=== PATIENT | female | born 1960 | race Two or more races ===

== ENCOUNTER 2024-08-13 14:03 | Inpatient (IN) | payer OTHER, SELFPAY ==
[2024-08-13 14:34] VITALS: BP 102/71; PULSE 93; RESP 18; TEMP 36.9; O2SAT 95; BMI 35.9
--- NOTE | 2024-08-13 14:45 | XR_ITS ---
Examination: CT abdomen with intravenous contrast CT pelvis with intravenous contrast 2-D coronal reconstructions 2-D sagittal reconstructions Date and time of exam:August 12, 2024 1754 hrs. Indications: Nausea vomiting abdominal pain umbilical pain beginning 5 days ago. CTDI: vol (mGy) 13.8 DLP: (mGycm) 820 Technique: Multiple axial sections of the abdomen and pelvis have been obtained. 64 slice high-resolution scanner used. 3 mm axial sections have been obtained, post intravenous injection 30 cc [id number] 2-D sagittal, coronal reconstructions obtained. Low dose protocols were performed. One or more of the following dose reduction techniques were used; automated exposure control, adjustment of the mA and/or KV according to patient size, use of iterative reconstruction technique. Findings: No focal liver or splenic lesions No gallstones Common bile duct is enlarged 18 mm No pancreatic mass 17 mm right adrenal nodule indeterminate, recommend elective MRI abdomen follow-up pre and postcontrast No hydronephrosis or renal calculi Multiple fluid distended small bowel loops including incarcerated small bowel in an umbilical hernia, hernia defect measuring 22 mm Normal appendix No diverticulitis Free fluid, mild in the pelvis Retroverted uterus Grade 1 anterolisthesis L4 on L5 with significant degenerative disc disease L5-S1 Impression: High-grade mechanical small bowel obstruction secondary to incarcerated small bowel in an umbilical hernia Recommend surgical consultation
--- NOTE | 2024-08-13 14:45 | EKG_ITS ---
[facility] Test Date: 2024-08-13 Pat Name: RIGO ANN Department: Room: - Gender: Female Sc[employer] Wheeler: : 1960 Requested By: Chelsea Hay Order Number: [id number] Reading MD: Chelsea Hay Measurements Intervals [place] Rate: 72 P: 28 NC: 175 QRS: -10 QRSD: 102 T: 44 QT: 411 QTc: 450 Interpretive Statements SINUS RHYTHM No previous ECG available for comparison /store/S0/[id number]/ecg/[id number].pdf
--- NOTE | 2024-08-13 14:49 | PD.EDABDPN ---
ED Abdominal Pain RME/HPI General Chief Complaint: Abdominal Pain Stated complaint: ABD PAIN, N/V, LOW BP Time seen by provider: 08/13/24 14:21 Arrival date/time: 08/13/24 14:03 RME / HPI RME / HPI narrative: 63-year-old female patient with significant history of hypertension, was brought in by family for evaluation regarding nausea and vomiting. Patient's been having nausea and vomiting since Saturday [place], associated with diffuse abdominal pain, generalized body weakness, dizziness, and hypotension. Also complained of umbilical pain and swelling. This been ongoing since Saturday. Severity moderate. Patient was seen by PCP twice and was given medication for vomiting injection x 2 today and Saturday. Patient denies any fever. Patient told me also that she cannot take anything down due to vomiting. She been complaining of constipation last bowel movement was Saturday. Last passing of gas this morning. Her who ate the same chicken did not have any symptoms. Related Data Home Medications ?Medication ?Instructions ?Recorded ?Confirmed amlodipine 10 mg-benazepril 20 mg 1 cap PO QDAY 05/12/19 capsule clarithromycin 500 mg tablet 500 mg PO BID 05/12/19 levothyroxine 75 mcg tablet 75 mcg PO QDAY 05/12/19 (Synthroid) phenazopyridine 200 mg tablet 200 mg PO TID 05/12/19 (Pyridium) promethazine-DM oral syrup each PO 05/12/19 sulfamethoxazole 800 1 tab PO BID 05/12/19 mg-trimethoprim 160 mg tablet (Bactrim DS) Previous Rx's ?Medication ?Instructions ?Recorded acetaminophen 500 mg tablet 1,000 mg (2 x 500 mg) PO QID PRN 05/13/19 (Tylenol Extra Strength) fever or pain #60 tabs albuterol sulfate 90 mcg/actuation 2 puff inhalation QID PRN 05/13/19 aerosol inhaler shortness of breath or wheezing #18 grams Allergies Allergy/AdvReac Type Severity Reaction Status Date / Time No Known Allergies Allergy Verified 05/12/19 23:23 Review of Systems Review of Systems Narrative Review of Systems: Review of system reviewed and within normal limits except mentioned in HPI ED Exam Narrative Physical exam: VITAL SIGNS: Reviewed. GENERAL APPEARANCE: Alert and interactive, follows commands, no acute distress, HEAD AND FACE: Non-traumatic. ENT: PERRL, pink conjunctivitis, eyelid no trauma, Mucous membrane moist. NECK: Supple, nontender, no nuchal rigidity. CHEST: No tenderness, no crepitus, no paradoxical movement, no retractions. LUNGS: Clear, well ventilated, symmetric, no rales, no wheezing, no ronchi, no stridor, good breath sounds bilaterally. HEART: Regular rate, regular rhythm, no murmur, no gallops. ABDOMEN: Soft, positive bowel sounds, nondistended, no guarding, diffuse abdominal tenderness, no rebound, no masses, RECTAL: Deferred. GENITAL: Deferred. NEUROLOGICAL: Gross motor function intact sensory function intact, Appropriate for age. MUSCULOSKELETAL: low back nontender, full range of motion. EXTREMITIES: Nontender, full range of motion. SKIN: Color pink, dry, no rash, no lacerations, no abrasions, no contusions. LYMPHATICS: Deferred. Course Quality Measures none Orders Category Date Time Status COVID-19 Screening Questionnaire NOW Care 08/13/24 20:[address] Screening NOW Care 08/13/24 14:46 Active Decision to Admit X1 Care 08/13/24 20:18 Active EKG (ED ONLY) *Do not use* NOW Care 08/13/24 14:45 Completed NG / OG Tube to LIS NOW Care 08/13/24 20:00 Active Consult to General Surgery Stat Cons 08/13/24 20:[address] abdomen pelvis w con Stat Exams 08/13/24 14:45 Completed EKG (ED Only) Stat Exams 08/13/24 14:45 Draft Blood Culture (Lab) Stat Lab 08/13/24 20:51 Received CBC Stat Lab 08/13/24 15:11 Completed Comprehensive Metabolic Panel Stat Lab 08/13/24 15:11 Completed Lactate (Lactic Acid) Stat Lab 08/13/24 20:46 Completed Lipase Stat Lab 08/13/24 15:11 Completed Partial Thromboplastin Time Stat Lab 08/13/24 15:11 Completed Prothrombin Time with INR Stat Lab 08/13/24 15:11 Completed UA, C/S IF [Urinalysis, C/S if Indicated] Stat Lab 08/13/24 17:20 Completed Cefoxitin [Mefoxin] 2 gm Med 08/13/24 20:01 Discontinued Sterile Water 10 ml IVP X1 Famotidine Inj [Pepcid Inj] Med 08/13/24 14:45 Discontinued 20 mg IVP X1 ONE Metoclopramide Inj [Reglan Inj] Med 08/13/24 19:53 Discontinued 10 mg IVP X1 ONE Morphine Inj Med 08/13/24 19:53 Discontinued 4 mg IVP X1 ONE Ondansetron Inj [Zofran Inj] Med 08/13/24 14:45 Discontinued 4 mg IV X1 ONE Potassium Chloride [K-Dur] Med 08/13/24 19:12 Discontinued 40 meq PO X1 ONE Sodium Chloride 0.9% 1000 ml [Ns] 1,000 ml Med 08/13/24 14:47 Discontinued IV 999 mls/hr Sodium Chloride 0.9% 1000 ml [Ns] 1,000 ml Med 08/13/24 19:12 Discontinued IV 999 mls/hr Vital Signs Vital signs: Vital Signs Temperature 98.5 F 08/13/24 14:34 Pulse Rate 93 08/13/24 14:34 Respiratory Rate 18 08/13/24 14:34 Blood Pressure 102/71 08/13/24 14:34 Pulse Oximetry (%) 95 08/13/24 14:34 Oxygen Delivery Method Room Air 08/13/24 14:34 Abdominal Pain MDM MDM Narrative MDM Narrative:: 63-year-old female patient with significant history of hypertension, was brought in by family for evaluation regarding nausea and vomiting. Patient's been having nausea and vomiting since Saturday [place], associated with diffuse abdominal pain, generalized body weakness, dizziness, and hypotension. Also complained of umbilical pain and swelling. This been ongoing since Saturday. Severity moderate. Patient was seen by PCP twice and was given medication for vomiting injection x 2 today and Saturday. Patient denies any fever. Patient told me also that she cannot take anything down due to vomiting. She been complaining of constipation last bowel movement was Saturday. Last passing of gas this morning. Her who ate the same chicken did not have any symptoms. CT scan of the abdomen and pelvis showed high-grade small bowel obstruction secondary to incarcerated umbilical hernia. Patient received 2 L of IV fluids, Reglan Zofran, and IV Mefoxin. Hernia was manually reduced by me with no success.Dr Bal tried to reduce also without success. After patient received Valium, morphine and fentanyl IV. Patient continued to have Bile looking vomitus. NG tube was placed. And attached to LIS Case discussed with Dr. Tay, general surgeon on-call, who told me to asked the hospitalist to admit he will see the patient also. Thank you Dr. Tay Spoke with hospitalist who admitted the patient none Dr Bal will call DR Tay Patient data External records reviewed:: None Clinical information provided by:: patient Social determinants that could affect healthcare access:: none Patient has the following chronic illnesses:: None How is presenting disease/condition affected by chronic disease/condition?: no chronic disease Evaluation data The following diagnostics were reviewed and interpreted by me:: lab results, radiology exam(s) and EKG tracing(s) Lab and/or radiology exams considered but not ordered:: None Interpretation Summary: EKG as interpreted by me showed sinus rhythm, ventricular rate of 72 bpm, WI interval 175 MS,no ST segment elevation depression noted. See other results in MDM Medications / Prescriptions Medications or Prescriptions considered but not ordered:: None Medication administrations:: Medication Administration History Acetaminophen (Acetaminophen Supp 650 Mg Supp) 650 mg WI Q6HR PRN PRN Reason: Fever > 100.3 or pain Stop: 09/12/24 20:58 Albuterol/Ipratropium (Albuterol/Ipratropium (Duoneb) Rt Franchesca 3 Ml Nebu) 3 ml INH Q2HR PRN PRN Reason: SHORTNESS OF BREATH OR WHEEZE Stop: 09/12/24 20:58 Dextrose (Dextrose 50%-Water Inj 50 Ml Syringe) 25 ml IV Q15MIN PRN PRN Reason: BG 50-70 responsive npo pt Stop: 09/12/24 21:26 Dextrose (Dextrose 50%-Water Inj 50 Ml Syringe) 50 ml IV Q15MIN PRN PRN Reason: BG <50 OR BG <70 & pt unresponsive Stop: 09/12/24 21:26 Glucagon (Glucagon Inj 1 Mg Vial) 1 mg IM Q15MIN PRN PRN Reason: BG <70, and no IV access Heparin Sodium (Porcine) (Heparin Sod Inj 5000 Unit/Ml Vial) 5,000 unit SC BID RAUL Stop: 08/27/24 20:59 Last Admin: 08/13/24 23:00 Dose: 5,000 unit Documented By: MP Co-signed By: EASTON Hydralazine HCl (Hydralazine Inj 20 Mg/Ml Vial) 5 mg IV Q6H PRN PRN Reason: SBP > 170 Stop: 09/12/24 21:14 Lactated Ringer's (Lactated Ringers) 1,000 mls @ 125 mls/hr IV .Q8H [facility] Stop: 09/12/24 21:07 Last Admin: 08/13/24 22:57 Dose: 125 mls/hr Documented By: NICKY Potassium Chloride (Kcl Ivpb) 10 meq in 100 mls @ 100 mls/hr IV Q1H RAUL Stop: 08/14/24 01:38 Last Admin: 08/13/24 22:58 Dose: 100 mls/hr Documented By: NICKY Levothyroxine Sodium (Levothyroxine Inj 100 Mcg Vial) 37.5 mcg IV ACBR [facility] Stop: 09/13/24 05:59 Morphine Sulfate (Morphine Sulf Inj 10 Mg/Ml Vial) 4 mg IVP Q4H PRN PRN Reason: BREAKTHROUGH PAIN Stop: 08/18/24 20:58 Ondansetron HCl (Ondansetron Inj 2 Mg/Ml Inj 2 Ml) 4 mg IV Q6H PRN; Protocol PRN Reason: NAUSEA OR VOMITING Stop: 09/12/24 20:58 Last Admin: 08/13/24 22:17 Dose: 4 mg Documented By: NICKY Pantoprazole Sodium (Pantoprazole Inj 40 Mg Vial) 40 mg IVP QDAY [facility] Stop: 09/12/24 21:14 Last Admin: 08/13/24 22:57 Dose: 40 mg Documented By: MP Discontinued Medications Diazepam (Diazepam Inj 5 Mg/Ml Vial 2 Ml) 5 mg IVP X1 ONE Stop: 08/13/24 22:41 Last Admin: 08/13/24 22:56 Dose: 5 mg Documented By: MP Famotidine (Famotidine Inj 10 Mg/Ml Vial 2 Ml) 20 mg IVP X1 ONE Stop: 08/13/24 14:46 Last Admin: 08/13/24 15:22 Dose: 20 mg Documented By: PAULINA Fentanyl Citrate (Fentanyl Cit Inj 50 Mcg/Ml Amp 2ml) 75 mcg IVP X1 ONE Stop: 08/13/24 22:41 Last Admin: 08/13/24 22:56 Dose: 75 mcg Documented By: NICKY Sodium Chloride (Ns) 1,000 mls @ 999 mls/hr IV .Q1H1M ONE Stop: 08/13/24 15:47 Last Infusion: 08/13/24 21:54 Dose: Infused Documented By: Admin: 08/13/24 15:15 Dose: 999 mls/hr Documented By: OA Sodium Chloride (Ns) 1,000 mls @ 999 mls/hr IV .Q1H1M ONE Stop: 08/13/24 20:12 Last Infusion: 08/13/24 21:54 Dose: Infused Documented By: Admin: 08/13/24 19:26 Dose: 999 mls/hr Documented By: YONAS Cefoxitin Sodium 2 gm/ Sterile (Water) 10 mls @ 120 mls/hr IVP X1 ONE Stop: 08/13/24 20:05 Last Admin: 08/13/24 23:00 Dose: 120 mls/hr Documented By: NICKY Promethazine HCl 12.5 mg/ (Sodium Chloride) 50.5 mls @ 2.5 mls/min IV X1 ONE Stop: 08/13/24 21:26 Metoclopramide HCl (Metoclopramide Inj 5 Mg/Ml Vial 2 Ml) 10 mg IVP X1 ONE; Protocol Stop: 08/13/24 19:54 Last Admin: 08/13/24 22:56 Dose: 10 mg Documented By: NICKY Morphine Sulfate (Morphine Sulf Inj 10 Mg/Ml Vial) 4 mg IVP X1 ONE Stop: 08/13/24 19:54 Last Admin: 08/13/24 22:12 Dose: 4 mg Documented By: MP Ondansetron HCl (Ondansetron Inj 2 Mg/Ml Inj 2 Ml) 4 mg IV X1 ONE; Protocol Stop: 08/13/24 14:46 Last Admin: 08/13/24 15:22 Dose: 4 mg Documented By: VG Potassium Chloride (Potassium Chloride 20 Meq Tabcr) 40 meq PO X1 ONE Stop: 08/13/24 19:13 Last Admin: 08/13/24 22:57 Dose: 40 meq Documented By: MP IV fluids, Zofran, morphine potassium Reglan and Mefoxin. Patient was also given IV Pepcid Consultations Consultation(s) initiated? (list below): Yes Consultation #1 (Physician, Specialty, Details): I consulted Dr. Tay, general surgeon on-call, thank you Dr. Tay Diagnosis Differential diagnosis abdominal pain: abdominal pain, small bowel obstruction and other (Incarcerated umbilical hernia) Most likely diagnosis given after review of the tests above:: Small bowel obstruction secondary to incarcerated umbilical hernia, SONA Admission Indicated Admission indicated?: indicated Explain why admission is indicated or not indicated:: Patient is to be admitted for further management Admission Request Was there a request for admission?: Yes Admission Attestation Admission request attestation: Discussed case with [] from Hospitalist service regarding admission. Discussed patients ED course, exam findings, labs, and radiology results. The Hospitalist [agrees,declines] to accept the patient for admission. Disposition Plan Disposition Plan: Admit Discharge Plan Plan Patient Disposition: Admit Acute Care w/in Hospital Disposition Comment: stable Problem List Clinical Impression: Small bowel obstruction, Incarcerated umbilical hernia
[2024-08-13] MEDS: SODIUM CHLORIDE 0.9% 1000 ML 1,000 ML 999 ML IV ×2 (15:15→19:26)
[2024-08-13] MEDS: FAMOTIDINE INJ 10 MG/ML VIAL 2 ML 20 MG IVP (15:22)
[2024-08-13] MEDS: ONDANSETRON INJ 2 MG/ML INJ 2 ML 4 MG IV ×2 (15:22→22:17)
[2024-08-13 15:28] LABS: Basophils % (Auto) 0 % (0-2.5); Eosinophils % (Auto) 0 % (0-10); Hemoglobin 14.6 g/dL (12.0-16.0); Immature Granulocytes % (Auto) 0 % (0-0); Immature Granulocytes Auto 0.02 Thou/mm3 (0.00-0.00); Lymphocytes # (Auto) 1.3 Thou/mm3 (1.0-4.8); Lymphocytes % (Auto) 13 % (10-50); Mean Corpuscular Hemoglobin 28.5 pg (25.0-35.0); Mean Corpuscular Volume 84 fL (80-100); Monocytes # (Auto) 1.4 Thou/mm3 (0.0-0.8); Monocytes % (Auto) 14 % (0-12); Neutrophils # (Auto) 7.3 Thou/mm3 (1.8-7.7); Neutrophils % (Auto) 72 % (37-80); Nucleated Red Blood Cell % 0 /100 WBC (0); Platelet Count 349 Thou/mm3 (140-440); RDW Standard Deviation 45.1 fL (36.4-46.3); Red Blood Count 5.13 Miln/mm3 (4.00-5.20); White Blood Count 10.2 Thou/mm3 (3.6-11.0)
[2024-08-13 15:58] LABS: Alanine Aminotransferase 14 U/L (10-49); Albumin, Serum 4.9 gm/dL (3.4-4.8); Albumin/Globulin Ratio 1.4 (1.2-2.2); Alkaline Phosphatase 78 U/L (46-116); Anion Gap 14 (7-16); Aspartate Amino Transferase < 8 U/L (0-34); BUN/Creatinine Ratio 21 Ratio (12-20); Bilirubin,Total 0.8 mg/dL (0.3-1.2); Blood Urea Nitrogen 39 mg/dL (9-23); Calcium 9.8 mg/dL (8.3-10.6); Calcium (Corrected) 9.8 mg/dL (8.5-10.1); Carbon Dioxide 26.2 mMol/L (20.0-31.0); Chloride 94 mMol/L (98-107); Creatinine (Component) 1.9 mg/dL (0.6-1.3); Estimated Creatinine Clearance 28.7 mL/min (>60); Globulin 3.5 gm/dL (2.3-3.5); Glucose 133 mg/dL (74-106); Lipase 80 U/L (12-53); Osmolality,Calculated 279 (275-295); Potassium 3.2 mMol/L (3.4-5.1); Sodium 134 mMol/L (136-145); Total Protein 8.4 gm/dL (5.7-8.2); eGFR 29 See Note
[2024-08-13 16:00] LABS: INR 1.1 (0.9-1.3); Partial Thromboplastin Time 27.3 Seconds (22.0-36.0); Prothrombin Time 11.7 Seconds (9.0-12.2)
[2024-08-13 17:57] LABS: Collection Type, Urine Clean Catch
[2024-08-13 18:41] LABS: Bilirubin,Urine 1+ (Negative); Blood,Urine Negative (Negative); Clarity,Urine Turbid (Clear/Hazy); Color,Urine Yellow (Lt Yel-Yel); Culture Indicated,Urine Not Indicated; Glucose, Urine Negative (Negative); Hyaline Casts,Urine 1 /hpf (0-1); Ketones,Urine 1+ (Negative); Leukocyte Esterase,Urine Negative (Negative); Nitrite,Urine Negative (Negative); PH,Urine 5.5 (5.0-7.0); Protein,Urine 1+ (Neg - Trace); RBC,Urine 1 /hpf (0-3); Specific Gravity,Urine 1.026 (1.001-1.035); Squamous Epithelial Cell,Urine 5 /hpf (0-5); Urobilinogen,Urine Negative mg/dL (0.0-1.0); WBC,Urine 9 /hpf (0-5)
--- NOTE | 2024-08-13 20:58 | PD.RESHP ---
Documentation for date of: 08/13/24 HPI History of Present Illness Chief complaint: Vomiting History of present illness: HPI: Patient is a 63-year-old female with a past medical history significant for essential hypertension, hyperlipidemia and hypothyroidism presented with a chief complaint of vomiting and abdominal pain. Patient states that on Saturday [4 days ago] [place] and had some sweet and sour chicken from the [employer] restaurant. Later that night she developed abdominal pain and vomiting. Initially the vomiting was only food contents progressed to bilious over the course of the 4 days, approximately greater than 10 episodes of vomiting per day. Patient would feel constantly nauseous and vomits shortly after any p.o. intake of liquid or food. Her last bowel movement was 5 days ago and patient is not passing any flatus either. Denies any hematemesis, fecal emesis, coffee ground emesis, diarrhea, melena, fever, chills and shortness of breath. Her abdominal pain was localized around her umbilicus, described as the worst pain in her life, 8/10 in severity, constant, no radiation and aggravated by touching. Of note patient had a previous episode of food poisoning on after eating at the same [employer] restaurant in the past and initially thought this was a recurrence. She treated with initially as food poisoning and presented to her PCP, Dr. Perkins 2 days prior to admission who prescribed her Bactrim and nabumetone. Patient was unable to take any of the medication due to constant vomiting and nausea. She has not been able to tolerate anything p.o. for the past 4 days. ED course: BP 102/71, pulse 93, RR 18, temp 98.5 F, SpO2 95% on room air. Labs significant for NA 134, K3.2, bicarb 26.2, BUN 39, CR 1.9, lipase 80. Urinalysis turbid appearance, 1+ protein, 1+ ketone, 1+ bili. EKG significant for sinus rhythm, rate 72. No acute ST changes. CT abdomen/pelvis significant for multiple fluid distended small bowel loops including incarcerated umbilical hernia, defect 22 mm. Free fluid in the pelvis. 17 mm right adrenal nodule. Retroverted uterus. Grade 1 anterolisthesis L4 on L5 with significant degenerative disc disease In the ED patient received 2 L normal saline IV fluid bolus, ondansetron 4 Mg IV x 2, metoclopramide 10 Mg IV x 1, morphine 4 Mg IV x 1, fentanyl 75 mcg IV x 1, diazepam 5 Mg IV x 1 and KCl 40 mEq p.o. x 1 Patient will be admitted for treatment and management of small bowel obstruction secondary to incarcerated umbilical hernia. General surgeon, Dr Tay consulted and is closely following the case. Appreciate recommendations Review of Systems Review of Systems Narrative Review of Systems: GENERAL: Denies fever/chills or diaphoresis. HEENT: Denies headaches or visual changes. Denies discharge. Neuro: Denies unusual weakness or difficulty speaking. CARDIO: Denies chest pain or palpitations. PULM: Denies SOB, couging or wheezing. GI: As Above URO: Denies buring/itching/pain/urinary changes. 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 MSK/EXT/SKIN: Denies joint/skeletal/muscle pain, issues/changes in upper or lower extremities, itchiness, or superficial pain. PSYCH: Cooperative, pleasant mood & affect. The rest of the review of systems is otherwise negative. Past Medical History Past Medical History Comments [facility] COMMENT: Past medical history: ?Essential hypertension ? Hyperlipidemia ? Hypothyroidism Medication list: ?Pravastatin 40 Mg p.o. at bedtime ? L-thyroxine 75 mcg p.o. daily ? Amlodipine/benazepril 05/10 1 tab p.o. 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 Education Level: Graduated high school Marital Status: with 4 kids Tobacco use: Denies ETHO use: Drinks approximately 2?3 beers per week Illicit drug use: Denies Social History Note: lives with Family History: Father?[place] at 66 Mother?breast cancer Sister?ovarian cancer Exam Vital Signs Temp Pulse Resp BP Pulse Ox O2 Del Method 98.5 F 93 18 102/71 95 Room Air 08/13/24 14:34 08/13/24 14:34 08/13/24 14:34 08/13/24 14:34 08/13/24 14:34 08/13/24 14:34 Narrative Exam Constitutional Alert, oriented x 3 and in mild distress. Elderly, obese female with HEENT Vision grossly intact. Patent nares. Trachea midline Respiratory Chest normal on inspection and clear auscultation bilaterally Cardiovascular S1 and S2 audible, RRR. No murmurs carotid bruit. No gross JVD. Abdominal Soft, obese. 5 x 5 cm mass palpated at umbilicus, skin erythematous, unreducible, painful to palpation. Absent bowel sounds. Genitourinary No bladder tenderness, no flank pain. Normal to palpation Musculoskeletal Extremities tone within normal limits. No LE edema. Neurological CN II - XII grossly intact. Extremity motor and sensation grossly intact. Skin Warm, dry and intact. No apparent lesions. Psychiatric Patient has good affect, is cooperative Results: Labs 08/13/24 15:11 08/13/24 15:11 Labs: Short CBC 08/13/24 Range/Units 15:11 WBC 10.2 (3.6-11.0) Thou/mm3 Hgb 14.6 (12.0-16.0) g/dL Hct 43.0 (36.0-46.0) % Plt Count 349 (140-440) Thou/mm3 BMP 08/13/24 15:11 Sodium 134 L Potassium 3.2 L Chloride 94 L Carbon Dioxide 26.2 BUN 39 H Creatinine 1.9 H Glucose 133 H Calcium 9.8 Liver Function 08/13/24 Range/Units 15:11 Total Bilirubin 0.8 (0.3-1.2) mg/dL AST < 8 (0-34) U/L ALT 14 (10-49) U/L Alkaline Phosphatase 78 (46-116) U/L Albumin 4.9 H (3.4-4.8) gm/dL Urine 08/13/24 Range/Units 17:20 Urine Color Yellow (Lt Yel-Yel) Urine Clarity Turbid A (Clear/Hazy) Urine pH 5.5 (5.0-7.0) Ur Specific [place] 1.026 (1.001-1.035) Urine Protein 1+ A (Neg - Trace) Urine Glucose (UA) Negative (Negative) Quality Measures Quality Measures none Medications Home Medications and Allergies Home Medications ?Medication ?Instructions ?Recorded ?Confirmed ?Type amlodipine 10 mg-benazepril 20 mg 1 cap PO QDAY 05/12/19 History capsule clarithromycin 500 mg tablet 500 mg PO BID 05/12/19 History levothyroxine 75 mcg tablet 75 mcg PO QDAY 05/12/19 History (Synthroid) phenazopyridine 200 mg tablet 200 mg PO TID 05/12/19 History (Pyridium) promethazine-DM oral syrup each PO 05/12/19 History sulfamethoxazole 800 1 tab PO BID 05/12/19 History mg-trimethoprim 160 mg tablet (Bactrim DS) Allergies Allergy/AdvReac Type Severity Reaction Status Date / Time No Known Allergies Allergy Verified 05/12/19 23:23 Visit Medications Discontinued Medications Famotidine (Famotidine Inj 10 Mg/Ml Vial 2 Ml) 20 mg IVP X1 ONE Stop: 08/13/24 14:46 Last Admin: 08/13/24 15:22 Dose: 20 mg Sodium Chloride (Ns) 1,000 mls @ 999 mls/hr IV .Q1H1M ONE Stop: 08/13/24 15:47 Last Admin: 08/13/24 15:15 Dose: 999 mls/hr Sodium Chloride (Ns) 1,000 mls @ 999 mls/hr IV .Q1H1M ONE Stop: 08/13/24 20:12 Last Admin: 08/13/24 19:26 Dose: 999 mls/hr Cefoxitin Sodium 2 gm/ Sterile (Water) 10 mls @ 120 mls/hr IVP X1 ONE Stop: 08/13/24 20:05 Metoclopramide HCl (Metoclopramide Inj 5 Mg/Ml Vial 2 Ml) 10 mg IVP X1 ONE; Protocol Stop: 08/13/24 19:54 Morphine Sulfate (Morphine Sulf Inj 10 Mg/Ml Vial) 4 mg IVP X1 ONE Stop: 08/13/24 19:54 Ondansetron HCl (Ondansetron Inj 2 Mg/Ml Inj 2 Ml) 4 mg IV X1 ONE; Protocol Stop: 08/13/24 14:46 Last Admin: 08/13/24 15:22 Dose: 4 mg Potassium Chloride (Potassium Chloride 20 Meq Tabcr) 40 meq PO X1 ONE Stop: 08/13/24 19:13 Assessment & Plan Plan Patient is a 63-year-old female with a past medical history significant for essential hypertension, hyperlipidemia and hypothyroidism presented with a chief complaint of vomiting and abdominal pain. Patient will be admitted for treatment and management of small bowel obstruction secondary to incarcerated umbilical hernia. 1. Small bowel obstruction secondary to incarcerated umbilical hernia 2. Vomiting 3. Elevated lipase 4. Hypokalemia Patient had greater than 15 episodes of vomiting per day for the past 4 days. Last passed stool 5 days ago and currently not passing any flatus. On exam patient has 5 x 5 cm mass around umbilicus, erythematous, painful to palpation and a reducible. CT abdomen/pelvis significant for multiple fluid distended small bowel loops including incarcerated umbilical hernia, defect 22 mm. Free fluid in the pelvis. 17 mm right adrenal nodule. Retroverted uterus. Grade 1 anterolisthesis L4 on L5 with significant degene Lipase 80, K3.2 In the ED patient received 2 L normal saline IV fluid bolus, ondansetron 4 Mg IV x 2, metoclopramide 10 Mg IV x 1, morphine 4 Mg IV x 1, fentanyl 75 mcg IV x 1, diazepam 5 Mg IV x 1 and KCl 40 mEq p.o. x 1 Plan: ? Keep n.p.o. ? NG tube and low intermittent suction ? Promethazine 12.5 Mg IV x 1 - Ondansetron 4 Mg IV Q6 hourly as needed for nausea/vomiting ? Morphine 4 g IV Q4 hourly as needed for breakthrough pain ? KCl 40 mEq IV x 1 ? Lactated Ringer's IV fluids at 125 cc/hour ? General Surgery, Dr Tay consulted. Appreciate recommendations 5. Acute kidney injury prerenal versus renal On admission CR 1.9. From chart review baseline appears to be 1 Etiology likely prerenal due to volume depletion from vomiting and decreased oral intake for past 4 days. Plan: ? IV hydration ? Renally dose medication ? Avoid nephrotoxic agents 6. Essential hypertension 7. Hyperlipidemia On admission BP 102/71 Home medication pravastatin 40 Mg p.o. at bedtime, amlodipine/benazepril / tab p.o. daily. Plan: ? Home medication on hold for now due to patient being n.p.o. and low blood pressures 8. Hypothyroidism Home medication levothyroxine 75 mcg p.o. daily Patient has not taken any medication for the past 4 days due to constant vomiting. Plan: ? Started on L-thyroxine 37.5 mcg IV AC BR 9. Incidentaloma, right adrenal nodule On CT patient had a 17 mm right adrenal nodule Plan: ? Recommend dexamethasone suppression test as outpatient 10. Grade 1 anterolisthesis L4 on L5 with significant degenerative disc disease Plan: ? Recommend to follow-up with your PCP as outpatient for possible neurosurgery referral Health maintenance: Disposition: Conservative management for SBO with possible surgical intervention Diet: NPO Lines: pIVs GI Prophylaxis: Pantoprazole Thrombo Prophylaxis: Heparin Code status: FULL CODE Plan of care discussed with Attending Dr. Ross Hogan MD PGY 1 Attending Provider Attestation/Addendum I have discussed and was present for the essential components of the history, physical examination, diagnosis, and treatment plan with the resident. I agree with the patient's care as documented by the resident and amended herein by me. Elbert Hawkins, DO. Patient seen and evaluated in the ED. In short, 63-year-old female with significant past medical history of hypertension hypothyroidism, presented for vomiting and abdominal pain for the past several days prior to admission. No bowel movement since Saturday. This is never happened before in the past. Patient subsequently admitted for incarcerated umbilical hernia with associated small bowel obstruction. In the ED, vital signs stable, patient afebrile, CBC unremarkable, BMP significant for a potassium 3.2, BUN 39 and a creatinine of 1.9. UA was positive however the patient is asymptomatic for any urinary symptoms. CT abdomen and pelvis demonstrated SBO secondary to incarcerated umbilical hernia. General surgery, Dr. Tay was consulted in the ED, an NG tube was also ordered. Patient admitted to [facility], general surgery consulted, possible surgical intervention tomorrow, NG tube ordered, will start IVF and hopefully see improvement with her SONA which is likely prerenal, replete potassium, pain control, Accu-Cheks every 6 hours and resume the patient's levothyroxine at an IV dose considering she has not taken it in approximately 5 days. Will continue to monitor closely, likely discharge home in 2 to 3 days pending specialist recommendations, improvement and/or surgical intervention. Although this document has been carefully reviewed, there may still be some phonetic and other typographical errors. These errors are purely grammatical due to imperfections in the software program and should not be construed in any way to compromise the substance of the patient's medical care during this visit.
[2024-08-13 21:02] LABS: Lactate (Lactic Acid) 1.5 mMol/L (0.4-2.0)
[2024-08-13 21:47] VITALS: BP 107/70; PULSE 62; RESP 17; TEMP 37.1; O2SAT 95
[2024-08-13] MEDS: MORPHINE SULF INJ 10 MG/ML VIAL 4 MG IVP (22:12)
[2024-08-13] MEDS: fentaNYL CIT INJ 50 mCg/ML AMP 2ML 75 MCG IVP (22:56)
[2024-08-13] MEDS: METOCLOPRAMIDE INJ 5 MG/ML VIAL 2 ML 10 MG IVP (22:56)
[2024-08-13] MEDS: DIAZEPAM INJ 5 MG/ML VIAL 2 ML IVP (22:56)
[2024-08-13] MEDS: PANTOPRAZOLE INJ 40 MG VIAL IVP (22:57)
[2024-08-13] MEDS: POTASSIUM CHLORIDE 20 mEq TABCR 40 MEQ PO (22:57)
[2024-08-13] MEDS: RINGERS LACTATED 1000 ML 1,000 ML 125 ML IV (22:57)
[2024-08-13] MEDS: POTASSIUM CHL 10 mEq IVPB 10 MEQ/100 ML BAG 100 MEQ IV ×2 (22:58→23:45)
[2024-08-13] MEDS: HEPARIN SOD INJ 5000 UNIT/ML VIAL SC (23:00)
[2024-08-13] MEDS: CEFOXITIN 2 GM in Sterile Water 10 ML IVP (23:00)
[2024-08-13 23:22] VITALS: PULSE 69; RESP 21; RESP 92; O2SAT 97
--- NOTE | 2024-08-13 23:36 | XR_ITS ---
Examination: AP chest single view Technique one AP portable upright chest single view Exam date and time: August 13, 1999 2538 hours Indications: Post orogastric tube placement Findings: Orogastric tube in stomach satisfactory position Subsegmental atelectasis at the lung bases Multiple air distended small bowel loops No free air Impression: Orogastric tube tip in stomach satisfactory position
[2024-08-13 23:44] VITALS: BP 110/75; PULSE 75; RESP 23; TEMP 37.1; O2SAT 91
[2024-08-14] VITALS (21 sets, daily range): BP systolic 110–137; BP diastolic 58–81; PULSE 61–95; RESP 13–90; TEMP 36.6–37.1; O2SAT 93–98; BMI 36.5
[2024-08-14] MEDS: POTASSIUM CHL 10 mEq IVPB 10 MEQ/100 ML BAG 100 MEQ IV ×2 (01:32→02:31)
--- NOTE | 2024-08-14 05:41 | PC.NURSE ---
pt ambulated to bathroom
[2024-08-14 05:54] LABS: Basophils % (Auto) 0 % (0-2.5); Eosinophils # (Auto) 0.1 Thou/mm3 (0.0-0.5); Eosinophils % (Auto) 1 % (0-10); Hematocrit 36.2 % (36.0-46.0); Hemoglobin 12.1 g/dL (12.0-16.0); Immature Granulocytes % (Auto) 0 % (0-0); Immature Granulocytes Auto 0.01 Thou/mm3 (0.00-0.00); Lymphocytes # (Auto) 1.7 Thou/mm3 (1.0-4.8); Lymphocytes % (Auto) 19 % (10-50); Mean Corpuscular HGB Conc 33.4 g/dl (31.0-37.0); Mean Corpuscular Hemoglobin 28.6 pg (25.0-35.0); Mean Corpuscular Volume 86 fL (80-100); Monocytes # (Auto) 1.1 Thou/mm3 (0.0-0.8); Monocytes % (Auto) 13 % (0-12); Neutrophils # (Auto) 5.7 Thou/mm3 (1.8-7.7); Neutrophils % (Auto) 66 % (37-80); Nucleated Red Blood Cell % 0 /100 WBC (0); Platelet Count 286 Thou/mm3 (140-440); RDW Standard Deviation 47.2 fL (36.4-46.3); Red Blood Count 4.23 Miln/mm3 (4.00-5.20); White Blood Count 8.6 Thou/mm3 (3.6-11.0)
[2024-08-14 06:27] LABS: Alanine Aminotransferase 11 U/L (10-49); Albumin, Serum 3.9 gm/dL (3.4-4.8); Albumin/Globulin Ratio 1.4 (1.2-2.2); Alkaline Phosphatase 63 U/L (46-116); Anion Gap 7 (7-16); Aspartate Amino Transferase 11 U/L (0-34); BUN/Creatinine Ratio 34 Ratio (12-20); Bilirubin,Total 0.5 mg/dL (0.3-1.2); Blood Urea Nitrogen 27 mg/dL (9-23); Calcium 8.6 mg/dL (8.3-10.6); Calcium (Corrected) 8.7 mg/dL (8.5-10.1); Carbon Dioxide 27.2 mMol/L (20.0-31.0); Cardiac Risk Estimate 2.8 RATIO (3.7-5.6); Chloride 103 mMol/L (98-107); Cholesterol 122 mg/dL (132-200); Creatinine (Component) 0.8 mg/dL (0.6-1.3); Estimated Creatinine Clearance 68.1 mL/min (>60); Free T4 (Free Thyroxine) 1.13 ng/dL (0.89-1.76); Globulin 2.7 gm/dL (2.3-3.5); Glucose 92 mg/dL (74-106); HDL Cholesterol 44 mg/dL (40-60); LDL Cholesterol,Calculated 56 mg/dL (0-130); Magnesium 2.3 mg/dL (1.6-2.6); Osmolality,Calculated 278 (275-295); Phosphorous 3.1 mg/dL (2.4-5.1); Potassium 4.2 mMol/L (3.4-5.1); Sodium 137 mMol/L (136-145); Thyroid Stimulating Hormone 7.47 uIU/mL (0.55-4.78); Total Protein 6.6 gm/dL (5.7-8.2); Triglycerides 112 mg/dL (30-150); eGFR > 60 See Note
[2024-08-14 06:32] LABS: Glucose Estimated Average 114 mg/dL (80-131); Hemoglobin A1C 5.6 % Hgb (4.8-6.0)
[2024-08-14] MEDS: LEVOTHYROXINE INJ 100 mCg VIAL 37.5 MCG IV (06:43)
[2024-08-14] MEDS: RINGERS LACTATED 1000 ML 1,000 ML 125 ML IV ×2 (06:46→18:35)
--- NOTE | 2024-08-14 06:53 | PC.NURSE ---
дмитрий in room now
--- NOTE | 2024-08-14 06:56 | PD.SURCONS ---
HPI Consult details Consult date: 08/14/24 Reason for consultation narrative: Abdominal pain with nausea and vomiting History of present illness: 63-year-old female with history of hypertension, hypothyroidism and hypercholesterolemia presented to the emergency department with 4-day history of abdominal pain. Her [place] She has had periumbilical pain that has been getting progressively worse. Her pain is associated with nausea and vomiting. She denies having similar symptoms in the past with no recent history of trauma. A CT scan was obtained that revealed incarcerated umbilical hernia causing small bowel obstruction. An NG tube was placed and patient was admitted for further management. Review of Systems Constitutional Constitutional: Denies chills and Denies fever(s) Cardiovascular Cardiovascular: Denies chest pain Respiratory Respiratory: Denies cough Gastrointestinal Gastrointestinal: Reports abdominal pain, Reports nausea and Reports vomiting Genitourinary Genitourinary: Denies difficulty voiding Hematologic/Lymphatic Hematologic/Lymphatic: Denies easy bleeding and Denies easy bruising Past Medical History Surgical History OTHER SURGICAL HX: Social History SMOKING STATUS: Never smoker SUBSTANCE USE: does not use ALCOHOL: Current Meds Home Medications and Allergies Home Medications ?Medication ?Instructions ?Recorded ?Confirmed ?Type amlodipine 10 mg-benazepril 20 mg 1 cap PO QDAY 05/12/19 History capsule clarithromycin 500 mg tablet 500 mg PO BID 05/12/19 History levothyroxine 75 mcg tablet 75 mcg PO QDAY 05/12/19 History (Synthroid) phenazopyridine 200 mg tablet 200 mg PO TID 05/12/19 History (Pyridium) promethazine-DM oral syrup each PO 05/12/19 History sulfamethoxazole 800 1 tab PO BID 05/12/19 History mg-trimethoprim 160 mg tablet (Bactrim DS) Allergies Allergy/AdvReac Type Severity Reaction Status Date / Time No Known Allergies Allergy Verified 05/12/19 23:23 Exam Vital Signs Temp Pulse Resp BP Pulse Ox O2 Del Method O2 Flow Rate 98.7 F 65 20 116/68 94 L Oxy Mask 2 08/13/24 23:44 08/14/24 06:00 08/14/24 06:00 08/14/24 06:00 08/14/24 06:00 08/14/24 06:00 08/14/24 06:00 Constitutional Constitutional: no acute distress Routine Abdominal Exam Abdominal: Present soft, normoactive bowel sounds, tenderness (Periumbilical tenderness with guarding) and hernia (Umbilical hernia that is not reducible at this time no evidence of peritonitis at this time); Absent distended Results Results: Laboratory Laboratory results: results reviewed Results: Imaging CT scan - abdomen: report reviewed and image reviewed CT scan - pelvis: report reviewed and image reviewed Assessment & Plan Problem List (1) Incarcerated umbilical hernia: Status: Acute (2) Small bowel obstruction: Status: Acute Plan Patient will be taken to the operating room for laparoscopic assisted repair of incarcerated umbilical hernia with possible mesh implantation, possible laparotomy with bowel resection. Risks include but not limited to infection, bleeding, injury to bowel, surround neurovascular structures, recurrence of hernia, abdominal sepsis and or abdominal abscess, need for further procedure and or operation discussed with the patient. Benefits alternatives explained to her, all her questions answered, she agreed and consented to proceed with the operation.
--- NOTE | 2024-08-14 07:15 | PC.NURSE ---
In to assess pt. Pt resting quietly at this time with c/o abd pain. Pain medication offered. Pt refused and states states she is tolerating pain. Orders received and initiated. Call light is within reach. Plan of care ongoing.
--- NOTE | 2024-08-14 08:16 | ESPR_ITS ---
Documentation for date of: 08/14/24 Subjective Subjective Interval history: No overnight events. Continued n.p.o. with NG tube suction in preparation for surgery. Pains appear to be managed with current regimen. Denies nausea or vomiting. Denies fever, chills, headaches, chest pain, sob, cough, GI or urinary symptoms. Exam Vital Signs Temp Pulse Resp BP Pulse Ox O2 Del Method O2 Flow Rate 98.7 F 65 20 116/68 94 L Oxy Mask 2 08/13/24 23:44 08/14/24 06:00 08/14/24 06:00 08/14/24 06:00 08/14/24 06:00 08/14/24 06:00 08/14/24 06:00 Narrative Exam GENERAL * Normal-appearing middle-aged female, no apparent distress. Appears comfortable. Pain managed with current regimen. HEENT * NCAT.?MISSAEL. Oral mucosa is moist. Patent Nares NECK * Supple, nontender, no thyromegaly, no meningismus, no JVD, no step offs CHEST * RRR, no m/g/r * CTAB, no w/r/r. Symmetrical chest rise. No intercostal subcostal retraction * Atraumatic, nontender, no crepitus, symmetrical expansion. ABDOMEN * Soft, mildly distended, mild erythema around umbilical hernia which was not visible as patient was laying flat. No guarding/rebound tenderness/masses. * Bowel sounds presents EXTREMITIES * Nontender, no cyanosis, no edema * No edema/cyanosis.? SKIN * Warm and dry, no jaundice/rashes. NEUROMUSCULAR * No lumbar or midline, no CVA, no paraspinal muscle spasm or tenderness. * Moves all 4 extremities well, with full ROM and good CSM. * FERRARA x4, CN II-XII grossly intact. * No focal neurologic deficits. PSYCHIATRY * Normal mood and affect, cooperative, no SI or HI or hallucinations. Objective Labs 08/14/24 05:20 08/14/24 05:20 Labs: Laboratory Results - last 24 hr 08/13/24 08/13/24 08/13/24 15:11 17:20 20:46 WBC 10.2 RBC 5.13 Hgb 14.6 Hct 43.0 MCV 84 MCH 28.5 MCHC 34.0 RDW Std Deviation 45.1 Plt Count 349 Neut % (Auto) 72 Lymph % (Auto) 13 [place] % (Auto) 14 H Eos % (Auto) 0 Baso % (Auto) 0 Neut # (Auto) 7.3 Lymph # (Auto) 1.3 [place] # (Auto) 1.4 H Eos # (Auto) 0.0 Baso # (Auto) 0.0 Immature Gran # (Auto) 0.02 H Absolute Nucleated RBC 0.00 Immature Gran % 0 Nucleated RBC % 0 PT 11.7 INR 1.1 APTT 27.3 Sodium 134 L Potassium 3.2 L Chloride 94 L Carbon Dioxide 26.2 Anion Gap 14 BUN 39 H Creatinine 1.9 H Estim Creat Clear Calc 28.7 L eGFR 29 L BUN/Creatinine Ratio 21 H Glucose [address] Glu mg/dL Hemoglobin A1c Calculated Osmolality 279 Lactic Acid 1.5 Calcium 9.8 Corrected Calcium 9.8 Phosphorus Magnesium Total Bilirubin 0.8 AST < 8 ALT 14 Alkaline Phosphatase 78 Total Protein 8.4 H Albumin 4.9 H Globulin 3.5 Albumin/Globulin Ratio 1.4 Triglycerides Cholesterol LDL Cholesterol, Calc HDL Cholesterol Cholesterol/HDL Ratio Lipase 80 H TSH Free T4 Ur Collection Type Clean Catch Urine Color Yellow Urine Clarity Turbid A Urine pH 5.5 Ur Specific [place] 1.026 Urine Protein 1+ A Urine Glucose (UA) Negative Urine Ketones 1+ A Urine Blood Negative Urine Nitrite Negative Urine Bilirubin 1+ A Urine Urobilinogen (Auto) Negative Ur Leukocyte Esterase Negative Urine RBC 1 Urine WBC 9 H Ur Squamous Epith Cells 5 Urine Bacteria None Hyaline Casts 1 Ur Culture Indicated? Not Indicated 08/14/24 05:20 WBC 8.6 RBC 4.23 Hgb 12.1 D Hct 36.2 MCV 86 MCH 28.6 MCHC 33.4 RDW Std Deviation 47.2 H Plt Count 286 D Neut % (Auto) 66 Lymph % (Auto) 19 [place] % (Auto) 13 H Eos % (Auto) 1 Baso % (Auto) 0 Neut # (Auto) 5.7 Lymph # (Auto) 1.7 [place] # (Auto) 1.1 H Eos # (Auto) 0.1 Baso # (Auto) 0.0 Immature Gran # (Auto) 0.01 H Absolute Nucleated RBC 0.00 Immature Gran % 0 Nucleated RBC % 0 PT INR APTT Sodium 137 Potassium 4.2 D Chloride 103 Carbon Dioxide 27.2 Anion Gap 7 BUN 27 H Creatinine 0.8 D Estim Creat Clear Calc 68.1 eGFR > 60 BUN/Creatinine Ratio [address]ucose [address] Glu mg/dL 114 Hemoglobin A1c 5.6 Calculated Osmolality 278 Lactic Acid Calcium 8.6 Corrected Calcium 8.7 Phosphorus 3.1 Magnesium 2.3 Total Bilirubin 0.5 AST 11 ALT 11 Alkaline Phosphatase 63 Total Protein 6.6 Albumin 3.9 D Globulin 2.7 Albumin/Globulin Ratio 1.4 Triglycerides 112 Cholesterol 122 L LDL Cholesterol, Calc 56 HDL Cholesterol 44 Cholesterol/HDL Ratio 2.8 L Lipase TSH 7.47 H Free T4 1.13 Ur Collection Type Urine Color Urine Clarity Urine pH Ur Specific [place] Urine Protein Urine Glucose (UA) Urine Ketones Urine Blood Urine Nitrite Urine Bilirubin Urine Urobilinogen (Auto) Ur Leukocyte Esterase Urine RBC Urine WBC Ur Squamous Epith Cells Urine Bacteria Hyaline Casts Ur Culture Indicated? Quality Measures Quality Measures none Assessment & Plan Assessment Current Active Medications: Generic Name Dose Route Start Last Admin Trade Name Freq PRN Reason Stop Dose Admin Acetaminophen 650 mg 08/13/24 20:59 Acetaminophen Supp 650 Mg Supp DC 09/12/24 20:58 Q6HR PRN Fever > 100.3 or pain Albuterol/Ipratropium 3 ml 08/13/24 20:59 Albuterol/Ipratropium (Duoneb) Rt Franchesca 3 Ml Nebu INH 09/12/24 20:58 Q2HR PRN SHORTNESS OF BREATH OR WHEEZE Dextrose 25 ml 08/13/24 21:27 Dextrose 50%-Water Inj 50 Ml Syringe IV 09/12/24 21:26 Q15MIN PRN BG 50-70 responsive npo pt Dextrose 50 ml 08/13/24 21:27 Dextrose 50%-Water Inj 50 Ml Syringe IV 09/12/24 21:26 Q15MIN PRN BG <50 OR BG <70 & pt unresponsive Glucagon 1 mg 08/13/24 21:27 Glucagon Inj 1 Mg Vial IM Q15MIN PRN BG <70, and no IV access Heparin Sodium (Porcine) 5,000 unit 08/13/24 21:00 08/13/24 23:00 Heparin Sod Inj 5000 Unit/Ml Vial SC 08/27/24 20:59 5,000 unit BID RAUL Administration Hydralazine HCl 5 mg 08/13/24 21:08 Hydralazine Inj 20 Mg/Ml Vial IV 09/12/24 21:14 Q6H PRN SBP > 170 Lactated Ringer's 1,000 mls @ 125 mls/hr 08/13/24 21:08 08/14/24 06:46 Lactated Ringers IV 09/12/24 21:07 125 mls/hr .Q8H RAUL Administration Levothyroxine Sodium 37.5 mcg 08/14/24 06:00 08/14/24 06:43 Levothyroxine Inj 100 Mcg Vial IV 09/13/24 05:59 37.5 mcg ACBR RAUL Administration Morphine Sulfate 4 mg 08/13/24 20:59 Morphine Sulf Inj 10 Mg/Ml Vial IVP 08/18/24 20:58 Q4H PRN BREAKTHROUGH PAIN Ondansetron HCl 4 mg 08/13/24 20:59 08/13/24 22:17 Ondansetron Inj 2 Mg/Ml Inj 2 Ml IV 09/12/24 20:58 4 mg Q6H PRN Administration NAUSEA OR VOMITING Protocol Pantoprazole Sodium 40 mg 08/13/24 21:15 08/13/24 22:57 Pantoprazole Inj 40 Mg Vial IVP 09/12/24 21:14 40 mg QDAY RAUL Administration Plan In summary: 59-year-old female with PMHx of HTN, HLD, hypothyroidism, admitted for incarcerated umbilical hernia. Currently n.p.o. for OR with general surgery today. Small bowel obstruction secondary to incarcerated umbilical hernia Vomiting Elevated lipase Hypokalemia 2/2 GI loss (resolved) Patient had greater than 15 episodes of vomiting per day for the past [address] shows multiple fluid distended small bowel loops with incarcerated umbilical hernia. ? Lactated ringer at 125 cc/H ? Continue n.p.o., NG tube suction ? Continue NEPHROTOXIN 2 g daily ? Pain control ? Pending OR with general surgery Prerenal SONA 2/2 finding depletion 2/2 vomiting. Resolved with fluids ? Renally dose meds, avoid overdiuresis and NEPHROTOXINS ? Daily CMP HTN HLD Hypothyroidism Tensive on admission. Possibly volume depleted. Home meds include AMLODIPINE/BENZEPRO 05/11 daily. ? Continue home ATORVASTATIN 40 mg daily ? Continue home LEVOTHYROXINE 37.5 mcg AC BR ? Restart ANTIHYPERTENSIVE as indicated Incidental findings CT showed 17 mm right adrenal nodule, grade 1 anterolisthesis L4 on L5 with significant degenerative disc disease. Asymptomatic at this time. ? Recommended outpatient follow-up, referral to specialist as appropriate Health maintenance Diet: NPO GI prophylaxis: PROTONIX DVT prophylaxis: SCD Antibiotics: Not indicated CODE STATUS: Full code Disposition: Surgery Patient case was discussed with attending, Fantasma Rock MD and senior residents Dr. Lock and Dr. Montoya. Elenita Alfred, DO PGYI Senior Resident Attestation: The patient is a 59-year-old female with significant past medical history of hypertension, hyperlipidemia, hypothyroidism who admitted with abdominal pain was found to have incarcerated umbilical hernia. Patient underwent exploratory laparotomy with partial small bowel resection and was found to have strangulated umbilical hernia, loop of mid ileum was strangulated within the hernia sac and has become necrotic. We will continue to monitor her closely, and manage her pain. We will follow general surgeon Dr. Tay's recommendations. I discussed with and supervised the leadership intern physician involved in the care of this patient. I personally saw and examined the patient and discussed the assessment and plan with the entire medicine team, including my attending. I agree with the assessment and plan as documented above. Bernabe Montoya MD PGY2 Internal Medicine Attending Provider Attestation/Addendum Face to face evaluation was performed by me. I have personally seen and examined the patient. I discussed the assessment and plan with the entire medicine team. I reviewed available medical records, imaging studies, laboratory results. I agree with the above subjective data, objective findings, assessment and plan except as corrected by me or noted below Small bowel obstruction secondary to incarcerated umbilical hernia Vomiting due to above Surgery on board, plan for OR today very soon NPO NG suction prn antiemetics and pain regimen
[2024-08-14] MEDS: PANTOPRAZOLE INJ 40 MG VIAL IVP (09:07)
[2024-08-14] MEDS: HEPARIN SOD INJ 5000 UNIT/ML VIAL SC (09:08)
--- NOTE | 2024-08-14 09:41 | PC.CC ---
Patient is a 63 year-old female who presents to the hospital for small bowel obstruction. SUNILWJuliette made [id number] contact with patient. ASW introduced self, role, and reason for visit. Patient appeared alert and oriented to self, location, and situation. At bedside was patient's , Johnny Brito who patient provided consent to remain in the room during assessment. Patient was pleasant and engaged in initial assessment. Patient confirmed information on demographics and reports to living at home with her . 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 Patient is able to ambulate independently and complete her own ADLs. Patient does not use any DME at home. She receives primary care with [facility] and uses [facility] [employer] for prescription medications. Upon discharge patient plans to return back home. volunteer services specialist to follow-up with any discharge needs.
--- NOTE | 2024-08-14 14:45 | PC.NURSE ---
Took report from ED as Oleksandr was on lunch. Ed then called back and stated pt was going straight to surgery. Admission questions delayed until pt comes to floor
--- NOTE | 2024-08-14 16:44 | PD.SUROPNT ---
Date of Procedure 08/14/24 Pre Op Diagnosis Incarcerated umbilical hernia Post Op Diagnosis Strangulated umbilical hernia with necrotic mid ileum Procedure Diagnostic laparoscopy Exploratory laparotomy with partial small bowel resection Findings Strangulated umbilical hernia, loop of mid ileum was strangulated within the hernia sac and has become necrotic Procedure Description Patient brought into the operating room in supine position. After administration of general tracheal anesthesia, patient's abdomen prepped and draped in standard surgical manner. A 5 mm incision was made in left upper quadrant and a Veress needle was inserted. Pneumoperitoneum was obtained up to 15 mmHg. The Veress needle was removed and 5 mm trocar inserted. Laparoscopic camera was inserted. The abdomen was inspected patient was noted to have an incarcerated umbilical hernia with a loop of small bowel incarcerated. An additional 5 mm trocar was placed in left lower quadrant. I attempted to reduce the small bowel from the hernia that was not successful. The part of the small bowel that was incarcerated appeared to be necrotic. At this point I elected to perform the procedure to open. Trocars and pneumoperitoneum was evacuated. An approximately 10 cm incision was made above the umbilicus, to the right and around the umbilicus and dissection was deepened into soft tissue. The hernia sac was circumferentially dissected out surrounding tissue. The defect was extended cephalad to enable reduction of the hernia. The hernia sac was then opened the content was necrotic part of small bowel. The hernia sac was excised. The remainder of the small bowel was eviscerated, proximal to the area of obstruction the small bowel was dilated, distal to the area of obstruction small bowel was decompressed. The area of obstruction was mid ileum. Proximal and distal to the area of necrotic bowel the small bowel was excised. The proximal dilated loops of small bowel was decompressed. A [id number]-[id number], functional end-to-end anastomosis was then created between the 2 ends of the small bowel. The enterotomy site was closed with running 2-0 Vicryl and reinforced with 3-0 silk suture in a Lembert fashion. The mesenteric defect was closed with interrupted [id number] sutures using 3-0 silk. The small bowel was placed inside the abdominal cavity. Abdomen and pelvis copiously and thoroughly washed and irrigated, all the fluids were suctioned and the suction fluid returned clear. Hemostasis was adequate and satisfactory. Anterior abdominal fascia was closed with running 0 PDS as well as interrupted sutures with #1 Vicryl. The wound was washed and incisions closed with emily. Sterile dressing and abdominal binder applied. Patient tolerated procedure well. She was extubated, breathing spontaneously and without difficulty and was transferred to postanesthesia care in stable condition. Instruments, needles and sponge counts were reported to be correct x 2. Anesthesia GETA and local Pathology / specimen Other (Partial small bowel) Estimated Blood Loss 25 Condition Stable Disposition PACU Surgeon Maddy Tay MD Surgical Staff Operation Date: 08/14/24 14:45 Case Staff Anesthesiologist: Alton Garcia RN First Assistant: Phuong Armstrong
--- NOTE | 2024-08-14 16:55 | SUR.PHASEI ---
[id number] Patient arrived to recovery resting comfortably in bed, drowsy and talking with staff, on oxygen 10L via oxy mask, breathing unlabored, vital signs stable, denies pain, dressing intact to abdomen; sutures, emily, gauze, medipore tape, no bleeding noted, NG tube in place at 54 to right nares with dark green fluid in tubing, clamped, lung sounds clear upon auscultation, bilateral radial pulses present when palpated, report received from Lesli BELTRAN/Dr. Garcia and Faheem PERDOMO
--- NOTE | 2024-08-14 17:15 | SUR.PHASEI ---
1715 abdominal binder placed on patient per MD order
[2024-08-14] MEDS: MORPHINE SULF INJ 10 MG/ML VIAL 3 MG IV ×2 (17:21→17:39)
[2024-08-14] MEDS: ACETAMINOPHEN IVPB 1,000 MG/100 ML VIAL 250 MG IV ×2 (17:24→23:46)
--- NOTE | 2024-08-14 18:20 | SUR.PHASEI ---
181 Report given to Susan PERDOMO, patient meets discharge criteria from recovery, awake and talking with staff, on oxygen 4L via oxy mask, breathing unlabored, vital signs stable, dressing intact with abdominal binder, no bleeding noted, per patient her pain is tolerable, denies nausea 182 Patient transported via bed to room 379 without incident, patient awaiting in patient room, patient moisten her mouth with lemon swab
--- NOTE | 2024-08-14 18:40 | PC.NURSE ---
Receive pt. on floor at 1830 on [facility] with oxymask at 4 L. Pt. GCS of 15. Spouse on bedside. Pt has NG marked at 54 in right nare. As of right now complaining pain of 2. Will keep monitor pt. and gracia them comfortable.
[2024-08-14] MEDS: CEFOXITIN 2 GM in SODIUM CHLORIDE 0.9% (P) 50 ML IV (19:41)
[2024-08-14] MEDS: MORPHINE SULF INJ 10 MG/ML VIAL 4 MG IVP (21:25)
[2024-08-14] MEDS: ONDANSETRON INJ 2 MG/ML INJ 2 ML 4 MG IV (21:33)
[2024-08-15] VITALS (8 sets, daily range): BP systolic 117–133; BP diastolic 64–84; PULSE 67–90; RESP 16–19; TEMP 36.2–36.7; O2SAT 91–98; BMI 36.7
[2024-08-15] MEDS: CEFOXITIN 2 GM in SODIUM CHLORIDE 0.9% (P) 50 ML IV ×4 (00:49→18:15)
[2024-08-15] MEDS: RINGERS LACTATED 1000 ML 1,000 ML 125 ML IV ×3 (03:39→22:29)
[2024-08-15] MEDS: ACETAMINOPHEN IVPB 1,000 MG/100 ML VIAL 250 MG IV (05:35)
[2024-08-15] MEDS: LEVOTHYROXINE INJ 100 mCg VIAL 37.5 MCG IV (05:38)
[2024-08-15 05:49] LABS: Basophils % (Auto) 0 % (0-2.5); Eosinophils % (Auto) 0 % (0-10); Hematocrit 36.1 % (36.0-46.0); Hemoglobin 11.9 g/dL (12.0-16.0); Immature Granulocytes % (Auto) 0 % (0-0); Immature Granulocytes Auto 0.02 Thou/mm3 (0.00-0.00); Lymphocytes # (Auto) 0.8 Thou/mm3 (1.0-4.8); Lymphocytes % (Auto) 11 % (10-50); Mean Corpuscular Hemoglobin 28.2 pg (25.0-35.0); Mean Corpuscular Volume 86 fL (80-100); Monocytes # (Auto) 0.8 Thou/mm3 (0.0-0.8); Monocytes % (Auto) 10 % (0-12); Neutrophils # (Auto) 5.7 Thou/mm3 (1.8-7.7); Neutrophils % (Auto) 78 % (37-80); Nucleated Red Blood Cell % 0 /100 WBC (0); Platelet Count 287 Thou/mm3 (140-440); RDW Standard Deviation 45.7 fL (36.4-46.3); Red Blood Count 4.22 Miln/mm3 (4.00-5.20); White Blood Count 7.3 Thou/mm3 (3.6-11.0)
[2024-08-15 06:32] LABS: Alanine Aminotransferase 13 U/L (10-49); Albumin, Serum 3.8 gm/dL (3.4-4.8); Albumin/Globulin Ratio 1.5 (1.2-2.2); Alkaline Phosphatase 60 U/L (46-116); Anion Gap 9 (7-16); Aspartate Amino Transferase 14 U/L (0-34); BUN/Creatinine Ratio 20 Ratio (12-20); Bilirubin,Total 0.5 mg/dL (0.3-1.2); Blood Urea Nitrogen 12 mg/dL (9-23); Calcium 8.9 mg/dL (8.3-10.6); Calcium (Corrected) 9.1 mg/dL (8.5-10.1); Carbon Dioxide 26.1 mMol/L (20.0-31.0); Chloride 103 mMol/L (98-107); Creatinine (Component) 0.6 mg/dL (0.6-1.3); Estimated Creatinine Clearance 90.4 mL/min (>60); Globulin 2.6 gm/dL (2.3-3.5); Glucose 108 mg/dL (74-106); Magnesium 2.1 mg/dL (1.6-2.6); Osmolality,Calculated 276 (275-295); Phosphorous 3.9 mg/dL (2.4-5.1); Potassium 4.9 mMol/L (3.4-5.1); Sodium 138 mMol/L (136-145); Total Protein 6.4 gm/dL (5.7-8.2); eGFR > 60 See Note
--- NOTE | 2024-08-15 08:02 | ESPR_ITS ---
Documentation for date of: 08/15/24 Subjective Subjective Interval history: No acute overnight events. POD 1 ex lap with partial small bowel resection. Continued n.p.o. Pain is tolerated. Passing flatus but no bowel. Denies new symptoms or worsening of symptoms. Denies fever, chills, headaches, chest pain, sob, cough, GI or urinary symptoms. Exam Vital Signs Temp Pulse Resp BP Pulse Ox O2 Del Method O2 Flow Rate 97.6 F 67 16 125/68 96 Oxy Mask 4 08/15/24 04:00 08/15/24 04:00 08/15/24 04:00 08/15/24 04:00 08/15/24 04:00 08/15/24 04:00 08/15/24 04:00 Narrative Exam GENERAL * Normal-appearing middle-aged female, no apparent distress. Appears comfortable. Pain managed with current regimen. HEENT * NCAT.?MISSAEL. Oral mucosa is moist. Patent Nares NECK * Supple, nontender, no thyromegaly, no meningismus, no JVD, no step offs CHEST * RRR, no m/g/r * CTAB, no w/r/r. Symmetrical chest rise. No intercostal subcostal retraction * Atraumatic, nontender, no crepitus, symmetrical expansion. ABDOMEN * Abdominal binder in place, intact and dry. * Bowel sounds presents EXTREMITIES * Nontender, no cyanosis, no edema * No edema/cyanosis.? SKIN * Warm and dry, no jaundice/rashes. NEUROMUSCULAR * No lumbar or midline, no CVA, no paraspinal muscle spasm or tenderness. * Moves all 4 extremities well, with full ROM and good CSM. * FERRARA x4, CN II-XII grossly intact. * No focal neurologic deficits. PSYCHIATRY * Normal mood and affect, cooperative, no SI or HI or hallucinations. Objective Labs 08/17/24 05:00 08/17/24 05:00 Labs: Laboratory Results - last 24 hr 08/15/24 05:19 WBC 7.3 RBC 4.22 Hgb 11.9 L Hct 36.1 MCV 86 MCH 28.2 MCHC 33.0 RDW Std Deviation 45.7 Plt Count 287 Neut % (Auto) 78 Lymph % (Auto) 11 [place] % (Auto) 10 Eos % (Auto) 0 Baso % (Auto) 0 Neut # (Auto) 5.7 Lymph # (Auto) 0.8 L [place] # (Auto) 0.8 Eos # (Auto) 0.0 Baso # (Auto) 0.0 Immature Gran # (Auto) 0.02 H Absolute Nucleated RBC 0.00 Immature Gran % 0 Nucleated RBC % 0 Sodium 138 Potassium 4.9 D Chloride 103 Carbon Dioxide 26.1 Anion Gap 9 BUN 12 Creatinine 0.6 Estim Creat Clear Calc 90.4 eGFR > 60 BUN/Creatinine Ratio 20 Glucose 108 H Calculated Osmolality 276 Calcium 8.9 Corrected Calcium 9.1 Phosphorus 3.9 Magnesium 2.1 Total Bilirubin 0.5 AST 14 ALT 13 Alkaline Phosphatase 60 Total Protein 6.4 Albumin 3.8 Globulin 2.6 Albumin/Globulin Ratio 1.5 Quality Measures Quality Measures none Advance care planning discussed with:: patient Assessment & Plan Assessment Current Active Medications: Generic Name Dose Route Start Last Admin Trade Name Freq PRN Reason Stop Dose Admin Acetaminophen 650 mg 08/13/24 20:59 Acetaminophen Supp 650 Mg Supp HI 09/12/24 20:58 Q6HR PRN Fever > 100.3 or pain Albuterol/Ipratropium 3 ml 08/13/24 20:59 Albuterol/Ipratropium (Duoneb) Rt Franchesca 3 Ml Nebu INH 09/12/24 20:58 Q2HR PRN SHORTNESS OF BREATH OR WHEEZE Atorvastatin Calcium 40 mg 08/14/24 21:00 08/14/24 21:30 Atorvastatin Calcium 20 Mg Tablet PO 09/13/24 20:59 Not Given HS RAUL Dextrose 25 ml 08/13/24 21:27 Dextrose 50%-Water Inj 50 Ml Syringe IV 09/12/24 21:26 Q15MIN PRN BG 50-70 responsive npo pt Dextrose 50 ml 08/13/24 21:27 Dextrose 50%-Water Inj 50 Ml Syringe IV 09/12/24 21:26 Q15MIN PRN BG <50 OR BG <70 & pt unresponsive Glucagon 1 mg 08/13/24 21:27 Glucagon Inj 1 Mg Vial IM Q15MIN PRN BG <70, and no IV access Hydralazine HCl 5 mg 08/13/24 21:08 Hydralazine Inj 20 Mg/Ml Vial IV 09/12/24 21:14 Q6H PRN SBP > 170 Lactated Ringer's 1,000 mls @ 125 mls/hr 08/13/24 21:08 08/15/24 03:39 Lactated Ringers IV 09/12/24 21:07 125 mls/hr .Q8H RAUL Administration Cefoxitin Sodium 2 gm/ Sodium 50 mls @ 100 mls/hr 08/14/24 18:34 08/15/24 06:10 Chloride IV 08/15/24 18:00 100 mls/hr Q6HR RAUL Administration Levothyroxine Sodium 37.5 mcg 08/14/24 06:00 08/15/24 05:38 Levothyroxine Inj 100 Mcg Vial IV 09/13/24 05:59 37.5 mcg ACBR RAUL Administration Morphine Sulfate 4 mg 08/13/24 20:59 08/14/24 21:25 Morphine Sulf Inj 10 Mg/Ml Vial IVP 08/18/24 20:58 4 mg Q4H PRN Administration BREAKTHROUGH PAIN Ondansetron HCl 4 mg 08/13/24 20:59 08/14/24 21:33 Ondansetron Inj 2 Mg/Ml Inj 2 Ml IV 09/12/24 20:58 4 mg Q6H PRN Administration NAUSEA OR VOMITING Protocol Pantoprazole Sodium 40 mg 08/13/24 21:15 08/14/24 09:07 Pantoprazole Inj 40 Mg Vial IVP 09/12/24 21:14 40 mg QDAY RAUL Administration Plan In summary: 59-year-old female with PMHx of HTN, HLD, hypothyroidism, admitted for incarcerated umbilical hernia. S/p ex lap with partial bowel resection. Passing gas. Pain tolerated. Continued n.p.o. No bowel movement yet. Appreciate recommendations from general surgery. SBO Incarcerated medical hernia POD 1 EX-LAP with small bowel resection Patient had greater than 15 episodes of vomiting per day for the past [address] shows multiple fluid distended small bowel loops with incarcerated umbilical hernia. Completed uncomplicated ex lap with small bowel resection. Passing flatus. No bowel movement. Pain tolerated. Continued n.p.o. ? Continue n.p.o., NG tube suction ? Continue CEFOXITIN 2 g daily (08/14 to present) ? Pain control Prerenal SONA (resovled) 2/2 finding depletion 2/2 vomiting. Resolved with fluids ? Renally dose meds, avoid overdiuresis and NEPHROTOXINS ? Daily CMP HTN HLD Hypothyroidism Tensive on admission. Possibly volume depleted. Home meds include AMLODIPINE/BENZEPRO 10/ daily. ? Continue home ATORVASTATIN 40 mg daily ? Continue home LEVOTHYROXINE 37.5 mcg AC BR ? Restart ANTIHYPERTENSIVE as indicated ? MELECIO versus OHA Patient found desatting overnight. Once likely MELECIO versus OHA versus atelectasis. Previously had workup for CPAP 20 years ago but never proceeded with machine. Reports symptoms of snoring, and morning fatigue. ? Oxygen PRN ? CPAP HS ? Recommended outpatient sleep study. Hypokalemia (resolved) Secondary to GI loss. Incidental findings CT showed 17 mm right adrenal nodule, grade 1 anterolisthesis L4 on L5 with significant degenerative disc disease. Asymptomatic at this time. ? Recommended outpatient follow-up, referral to specialist as appropriate Health maintenance Diet: NPO GI prophylaxis: PROTONIX DVT prophylaxis: LOVENOX Antibiotics: Not indicated CODE STATUS: Full code Disposition: Surgery Patient case was discussed with attending, Vasu Arguello MD and senior residents Dr. Lock and Dr. Montoya. Elenita Alfred DO PGYI Senior Resident Attestation: 59-year-old female with significant past medical history of hypertension, hyperlipidemia, hypothyroidism admitted for abdominal pain was found to have incarcerated umbilical hernia is s/p ex lap with partial bowel resection. This morning, she reported doing well, her pain being well-controlled. She denied any nausea, fever or chills, vomiting, has been passing gas. Her vitals were stable, labs were within normal limit. She was started on clear liquid diet by Dr. Tay, and will continue with pain management. She was started on CPAP at night, and we will recommend outpatient sleep study. I discussed with and supervised the tech intern physician involved in the care of this patient. I personally saw and examined the patient and discussed the assessment and plan with the entire medicine team, including my attending. I agree with the assessment and plan as documented above. Bernabe Montoya MD PGY2 Internal Medicine Attending Provider Attestation/Addendum I attest that I was physically present for the evaluation, physical examination, lab and imaging review of the patient with the residents. I discussed the case with the residents and agree with the findings and plans of care as documented above. Ailyn Arguello MD
[2024-08-15] MEDS: PANTOPRAZOLE INJ 40 MG VIAL IVP (10:02)
[2024-08-15] MEDS: ACETAMINOPHEN SUPP 650 MG SUPP PR (10:49)
[2024-08-15] MEDS: ENOXAPARIN SOD INJ 40 MG/0.4 ML SYRINGE SC (11:30)
--- NOTE | 2024-08-15 12:36 | ESPR_ITS ---
Documentation for date of: 08/15/24 Subjective Subjective Narrative: Patient is seen and examined. Pain is controlled. Her NG tube has been clamped, she denies nausea or vomiting Exam Vital Signs Temp Pulse Resp BP Pulse Ox O2 Del Method O2 Flow Rate 97.2 F 84 16 128/67 91 L Room Air 3 08/15/24 12:00 08/15/24 12:00 08/15/24 12:00 08/15/24 12:00 08/15/24 12:00 08/15/24 12:00 08/15/24 09:16 Constitutional Constitutional: no acute distress Routine Abdominal Exam Comments: Abdomen is soft, mildly distended. She has hypoactive bowel sounds. Incision with dressings clean, dry and intact Assessment & Plan Assessment Additional comments: Postop day #1 status post exploratory laparotomy with partial small bowel re section Plan DC NG tube. Continue to use incentive spirometer. May have ice chips. Increase ambulation and use incentive spirometer Procedures Procedures Diagnostic laparoscopy Exploratory laparotomy with partial small bowel resection
[2024-08-15] MEDS: ONDANSETRON INJ 2 MG/ML INJ 2 ML 4 MG IV (22:30)
[2024-08-16] VITALS (7 sets, daily range): BP systolic 131–157; BP diastolic 70–80; PULSE 77–82; RESP 18–24; TEMP 36.4–37.4; O2SAT 93–96
[2024-08-16] MEDS: PROMETHAZINE INJ 12.5 MG in SODIUM CHLORIDE 0.9% 50 ML 2.5 MG IV (03:05)
[2024-08-16] MEDS: ONDANSETRON INJ 2 MG/ML INJ 2 ML 4 MG IV (04:25)
[2024-08-16] MEDS: LEVOTHYROXINE INJ 100 mCg VIAL 37.5 MCG IV (05:40)
[2024-08-16 06:20] LABS: Basophils % (Auto) 0 % (0-2.5); Eosinophils # (Auto) 0.1 Thou/mm3 (0.0-0.5); Eosinophils % (Auto) 2 % (0-10); Hematocrit 34.4 % (36.0-46.0); Hemoglobin 11.2 g/dL (12.0-16.0); Immature Granulocytes % (Auto) 1 % (0-0); Immature Granulocytes Auto 0.05 Thou/mm3 (0.00-0.00); Lymphocytes # (Auto) 1.3 Thou/mm3 (1.0-4.8); Lymphocytes % (Auto) 18 % (10-50); Mean Corpuscular HGB Conc 32.6 g/dl (31.0-37.0); Mean Corpuscular Hemoglobin 28.2 pg (25.0-35.0); Mean Corpuscular Volume 87 fL (80-100); Monocytes # (Auto) 1.1 Thou/mm3 (0.0-0.8); Monocytes % (Auto) 14 % (0-12); Neutrophils # (Auto) 4.9 Thou/mm3 (1.8-7.7); Neutrophils % (Auto) 65 % (37-80); Nucleated Red Blood Cell % 0 /100 WBC (0); Platelet Count 329 Thou/mm3 (140-440); RDW Standard Deviation 47.6 fL (36.4-46.3); Red Blood Count 3.97 Miln/mm3 (4.00-5.20); White Blood Count 7.5 Thou/mm3 (3.6-11.0)
[2024-08-16] MEDS: RINGERS LACTATED 1000 ML 1,000 ML 125 ML IV ×3 (06:43→23:10)
[2024-08-16 06:55] LABS: Alanine Aminotransferase 11 U/L (10-49); Albumin, Serum 3.7 gm/dL (3.4-4.8); Albumin/Globulin Ratio 1.5 (1.2-2.2); Alkaline Phosphatase 57 U/L (46-116); Anion Gap 10 (7-16); Aspartate Amino Transferase < 10 U/L (0-34); BUN/Creatinine Ratio 25 Ratio (12-20); Bilirubin,Total 0.4 mg/dL (0.3-1.2); Blood Urea Nitrogen 10 mg/dL (9-23); Calcium 8.7 mg/dL (8.3-10.6); Calcium (Corrected) 8.9 mg/dL (8.5-10.1); Carbon Dioxide 24.1 mMol/L (20.0-31.0); Chloride 103 mMol/L (98-107); Creatinine (Component) 0.4 mg/dL (0.6-1.3); Estimated Creatinine Clearance 132.5 mL/min (>60); Globulin 2.5 gm/dL (2.3-3.5); Glucose 82 mg/dL (74-106); Magnesium 1.8 mg/dL (1.6-2.6); Osmolality,Calculated 271 (275-295); Phosphorous 2.4 mg/dL (2.4-5.1); Potassium 3.5 mMol/L (3.4-5.1); Sodium 137 mMol/L (136-145); Total Protein 6.2 gm/dL (5.7-8.2); eGFR > 60 See Note
[2024-08-16] MEDS: PANTOPRAZOLE INJ 40 MG VIAL IVP (09:14)
[2024-08-16] MEDS: ENOXAPARIN SOD INJ 40 MG/0.4 ML SYRINGE SC (09:14)
--- NOTE | 2024-08-16 11:25 | EKG_ITS ---
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
--- NOTE | 2024-08-16 11:54 | PD.SURPROG ---
Documentation for date of: 08/16/24 Subjective Subjective Narrative: Patient is seen and examined. She had an episode of emesis while NG tube was being removed. She started passing flatus Exam Vital Signs Temp Pulse Resp BP Pulse Ox O2 Del Method O2 Flow Rate 98.4 F 77 20 143/78 H 96 Nasal Cannula 2 08/16/24 07:49 08/16/24 07:49 08/16/24 07:49 08/16/24 07:49 08/16/24 07:49 08/16/24 07:49 08/16/24 07:49 Constitutional Constitutional: no acute distress Routine Abdominal Exam Comments: Abdomen is soft and less distended. Incision with dressings clean, dry and intact. She has active bowel sounds Assessment & Plan Assessment Additional comments: Postop day #2 status post exploratory laparotomy with partial small bowel resection Plan Start patient on clear liquids. Patient is advised to increase ambulation Procedures Procedures Diagnostic laparoscopy Exploratory laparotomy with partial small bowel resection
--- NOTE | 2024-08-16 14:58 | PC.SS ---
Rounding: Unable to tolerate diet, still experiencing nausea
--- NOTE | 2024-08-16 15:33 | ESPR_ITS ---
Documentation for date of: 08/16/24 Subjective Subjective Interval history: Patient was examined bedside this morning, she was mildly nauseous today. Starting clear liquid diet as per Dr. Mcintosh's recommendation and told her to ambulate more. Exam Vital Signs Temp Pulse Resp BP Pulse Ox O2 Del Method O2 Flow Rate 98.4 F 82 20 157/80 H 96 Nasal Cannula 2 08/16/24 12:00 08/16/24 12:00 08/16/24 12:00 08/16/24 12:00 08/16/24 12:00 08/16/24 12:00 08/16/24 12:00 Narrative Exam GENERAL: Comfortable adult seen resting comfortably in hospital bed, no acute distress,mild naseous VITALS: All vitals were reviewed and the pulse ox is 98% on room air HEENT: Normocephalic, atraumatic. Pupils are equal and reactive. Oral mucosa is moist. NECK: Supple, nontender, no JVD CHEST: Symmetrical, atraumatic and with equal expansion ,Nontender on palpation CARDIOVASCULAR: Heart regular rhythm & rate. S1/S2. no murmur or gallop rub or extra beats. LUNGS: Clear to auscultation bilaterally with symmetrical chest rise. No laboring tachypnea or wheezing. No intercostal subcostal retraction. No rales and no rhonchi. ABDOMEN:Abdomen is soft and less distended. Incision with dressings clean, dry and intact. She has active bowel sounds EXTREMITIES:Moves all 4 extremities,No B/L LE edema. SKIN: Warm and dry, no jaundice or rashes noted. NEURO: Patient is AO x 3, Cranial nerves II through XII grossly intact. There is no focal neurologic deficits noted. PSYCHIATRIC: Patient is in normal mood, cooperative, no SI or HI or hallucinations. Objective Labs 08/17/24 05:00 08/17/24 05:00 Labs: Laboratory Results - last 24 hr 08/16/24 05:34 WBC 7.5 RBC 3.97 L Hgb 11.2 L Hct 34.4 L MCV 87 MCH 28.2 MCHC 32.6 RDW Std Deviation 47.6 H Plt Count 329 D Neut % (Auto) 65 Lymph % (Auto) 18 [place] % (Auto) 14 H Eos % (Auto) 2 Baso % (Auto) 0 Neut # (Auto) 4.9 Lymph # (Auto) 1.3 [place] # (Auto) 1.1 H Eos # (Auto) 0.1 Baso # (Auto) 0.0 Immature Gran # (Auto) 0.05 H Absolute Nucleated RBC 0.00 Immature Gran % 1 H Nucleated RBC % 0 Sodium 137 Potassium 3.5 D Chloride 103 Carbon Dioxide 24.1 Anion Gap 10 BUN 10 Creatinine 0.4 L Estim Creat Clear Calc 132.5 eGFR > 60 BUN/Creatinine Ratio 25 H Glucose 82 Calculated Osmolality 271 L Calcium 8.7 Corrected Calcium 8.9 Phosphorus 2.4 Magnesium 1.8 Total Bilirubin 0.4 AST < 10 ALT 11 Alkaline Phosphatase 57 Total Protein 6.2 Albumin 3.7 Globulin 2.5 Albumin/Globulin Ratio 1.5 Quality Measures Quality Measures none Advance care planning discussed with:: patient Assessment & Plan Assessment Current Active Medications: Generic Name Dose Route Start Last Admin Trade Name Freq PRN Reason Stop Dose Admin Acetaminophen 650 mg 08/15/24 10:27 08/15/24 10:49 Acetaminophen Supp 650 Mg Supp ID 09/12/24 20:58 650 mg Q6HR PRN Administration Fever > 100.3 or pain(1-3) Albuterol/Ipratropium 3 ml 08/13/24 20:59 Albuterol/Ipratropium (Duoneb) Rt Franchesca 3 Ml Nebu INH 09/12/24 20:58 Q2HR PRN SHORTNESS OF BREATH OR WHEEZE Atorvastatin Calcium 40 mg 08/14/24 21:00 08/15/24 22:14 Atorvastatin Calcium 20 Mg Tablet PO 09/13/24 20:59 Not Given HS RAUL Enoxaparin Sodium 40 mg 08/15/24 11:00 08/16/24 09:14 Enoxaparin Sod Inj 40 Mg/0.4 Ml Syringe SC 08/29/24 10:59 40 mg QDAY RAUL Administration Hydralazine HCl 5 mg 08/13/24 21:08 Hydralazine Inj 20 Mg/Ml Vial IV 09/12/24 21:14 Q6H PRN SBP > 170 Lactated Ringer's 1,000 mls @ 125 mls/hr 08/13/24 21:08 08/16/24 15:17 Lactated Ringers IV 09/12/24 21:07 125 mls/hr .Q8H RAUL Administration Levothyroxine Sodium 37.5 mcg 08/14/24 06:00 08/16/24 05:40 Levothyroxine Inj 100 Mcg Vial IV 09/13/24 05:59 37.5 mcg ACBR RAUL Administration Morphine Sulfate 4 mg 08/15/24 14:28 Morphine Sulf Inj 10 Mg/Ml Vial IVP 08/18/24 20:58 Q4H PRN BREAKTHROUGH PAIN Ondansetron HCl 4 mg 08/13/24 20:59 08/16/24 04:25 Ondansetron Inj 2 Mg/Ml Inj 2 Ml IV 09/12/24 20:58 4 mg Q6H PRN Administration NAUSEA OR VOMITING Protocol Pantoprazole Sodium 40 mg 08/13/24 21:15 08/16/24 09:14 Pantoprazole Inj 40 Mg Vial IVP 09/12/24 21:14 40 mg QDAY RAUL Administration Plan In summary: 59-year-old female with PMHx of HTN, HLD, hypothyroidism, admitted for incarcerated umbilical hernia. S/p ex lap with partial bowel resection. Passing gas. Pain tolerated. No bowel movement yet. Appreciate recommendations from general surgery. Incarcerated medical hernia POD 2 EX-LAP with small bowel resection SBO Patient had greater than 15 episodes of vomiting per day for the past [address] shows multiple fluid distended small bowel loops with incarcerated umbilical hernia. Completed uncomplicated ex lap with small bowel resection. Passing flatus. No bowel movement. Pain tolerated. Continued n.p.o. ? NG tube discontinued ? Continue CEFOXITIN 2 g daily (discontinued ) ? Clear liquis diet _ Advised her to ambulate more Prerenal SONA (resovled) 2/2 finding depletion 2/2 vomiting. Resolved with fluids ? Renally dose meds, avoid overdiuresis and NEPHROTOXINS ? Daily CMP HTN HLD Hypothyroidism Tensive on admission. Possibly volume depleted. Home meds include AMLODIPINE/BENZEPRO 10/21 daily. ? Continue home ATORVASTATIN 40 mg daily ? Continue home LEVOTHYROXINE 37.5 mcg AC BR ? Restart ANTIHYPERTENSIVE as indicated ? MELECIO versus OHA Patient found desatting overnight. Once likely MELECIO versus OHA versus atelectasis. Previously had workup for CPAP 20 years ago but never proceeded with machine. Reports symptoms of snoring, and morning fatigue. ? Oxygen PRN ? CPAP HS ? Recommended outpatient sleep study. Hypokalemia (resolved) Secondary to GI loss. Incidental findings CT showed 17 mm right adrenal nodule, grade 1 anterolisthesis L4 on L5 with significant degenerative disc disease. Asymptomatic at this time. ? Recommended outpatient follow-up, referral to specialist as appropriate Health maintenance Diet: CLD GI prophylaxis: PROTONIX DVT prophylaxis: LOVENOX Antibiotics: Not indicated CODE STATUS: Full code Disposition: Surgery Patient case was discussed with attending Esau Mitchell MD , PGY-3 Attending Provider Attestation/Addendum I reviewed labs, imaging, EKG, home medications and prior available records. Face to face evaluation was performed by me. I have personally examined the patient and discussed assessment and plan with the IM team. I reviewed the resident note and agree with the plan with exceptions as below. Small bowel obstruction status post exploratory laparotomy and partial removal of small bowel Nausea and vomiting Periumbilical abdominal pain Advance diet as tolerated Management of pain as needed Discussed with general surgery: Recommended early ambulation
[2024-08-16] MEDS: METOCLOPRAMIDE INJ 5 MG/ML VIAL 2 ML 10 MG IVP ×2 (19:36→23:47)
[2024-08-16] MEDS: bisacodyL 10 MG SUPP PR (19:40)
[2024-08-16] MEDS: ATORVASTATIN CALCIUM 20 MG TABLET 40 MG PO (21:32)
[2024-08-17] VITALS: BP 133/74; PULSE 81; RESP 20; TEMP 36.4; O2SAT 95
[2024-08-17 04:00] VITALS: BP 129/72; PULSE 72; RESP 20; TEMP 36.4; O2SAT 95
[2024-08-17] MEDS: LEVOTHYROXINE INJ 100 mCg VIAL 37.5 MCG IV (05:33)
[2024-08-17] MEDS: METOCLOPRAMIDE INJ 5 MG/ML VIAL 2 ML 10 MG IVP ×2 (05:35→11:47)
[2024-08-17 06:41] LABS: Basophils % (Auto) 0 % (0-2.5); Eosinophils # (Auto) 0.2 Thou/mm3 (0.0-0.5); Eosinophils % (Auto) 2 % (0-10); Hematocrit 32.4 % (36.0-46.0); Hemoglobin 10.8 g/dL (12.0-16.0); Immature Granulocytes % (Auto) 1 % (0-0); Immature Granulocytes Auto 0.05 Thou/mm3 (0.00-0.00); Lymphocytes # (Auto) 1.5 Thou/mm3 (1.0-4.8); Lymphocytes % (Auto) 20 % (10-50); Mean Corpuscular HGB Conc 33.3 g/dl (31.0-37.0); Mean Corpuscular Hemoglobin 28.4 pg (25.0-35.0); Mean Corpuscular Volume 85 fL (80-100); Monocytes % (Auto) 13 % (0-12); Neutrophils # (Auto) 4.7 Thou/mm3 (1.8-7.7); Neutrophils % (Auto) 63 % (37-80); Nucleated Red Blood Cell % 0 /100 WBC (0); Platelet Count 315 Thou/mm3 (140-440); RDW Standard Deviation 45.8 fL (36.4-46.3); White Blood Count 7.4 Thou/mm3 (3.6-11.0)
[2024-08-17 07:13] LABS: Alanine Aminotransferase 13 U/L (10-49); Albumin, Serum 3.3 gm/dL (3.4-4.8); Albumin/Globulin Ratio 1.3 (1.2-2.2); Alkaline Phosphatase 54 U/L (46-116); Anion Gap 11 (7-16); Aspartate Amino Transferase 13 U/L (0-34); BUN/Creatinine Ratio 23 Ratio (12-20); Bilirubin,Total 0.4 mg/dL (0.3-1.2); Blood Urea Nitrogen 9 mg/dL (9-23); Calcium 8.5 mg/dL (8.3-10.6); Calcium (Corrected) 9.1 mg/dL (8.5-10.1); Carbon Dioxide 23.9 mMol/L (20.0-31.0); Chloride 102 mMol/L (98-107); Creatinine (Component) 0.4 mg/dL (0.6-1.3); Estimated Creatinine Clearance 132.5 mL/min (>60); Globulin 2.5 gm/dL (2.3-3.5); Glucose 77 mg/dL (74-106); Magnesium 1.7 mg/dL (1.6-2.6); Osmolality,Calculated 271 (275-295); Phosphorous 2.8 mg/dL (2.4-5.1); Potassium 3.1 mMol/L (3.4-5.1); Sodium 137 mMol/L (136-145); Total Protein 5.8 gm/dL (5.7-8.2); eGFR > 60 See Note
[2024-08-17 08:00] VITALS: BP 111/63; PULSE 71; RESP 18; TEMP 36.3; O2SAT 95
[2024-08-17] MEDS: RINGERS LACTATED 1000 ML 1,000 ML 125 ML IV (08:05)
[2024-08-17 08:19] VITALS: PULSE 87; RESP 18; O2SAT 97
--- NOTE | 2024-08-17 08:23 | PD.RESPRO ---
Documentation for date of: 08/17/24 Subjective Subjective Interval history: No acute overnight events. Patient doing well. Tolerating clear liquid, passing stool. Denies new symptoms or worsening of symptoms. Denies fever, chills, headaches, chest pain, sob, cough, GI or urinary symptoms. Exam Vital Signs Temp Pulse Resp BP Pulse Ox O2 Del Method O2 Flow Rate 97.6 F 87 18 129/72 97 Nasal Cannula 2 08/17/24 04:00 08/17/24 08:19 08/17/24 08:19 08/17/24 04:00 08/17/24 08:19 08/17/24 04:00 08/17/24 08:19 Narrative Exam GENERAL Normal-appearing middle-aged female, no apparent distress. Appears comfortable. Pain managed with current regimen. HEENT NCAT.?MISSAEL. Oral mucosa is moist. Patent Nares NECK Supple, nontender, no thyromegaly, no meningismus, no JVD, no step offs CHEST RRR, no m/g/r CTAB, no w/r/r. Symmetrical chest rise. No intercostal subcostal retraction Atraumatic, nontender, no crepitus, symmetrical expansion. ABDOMEN Abdominal binder in place, intact and dry. Bowel sounds presents EXTREMITIES Nontender, no cyanosis, no edema No edema/cyanosis.? SKIN Warm and dry, no jaundice/rashes. NEUROMUSCULAR No lumbar or midline, no CVA, no paraspinal muscle spasm or tenderness. Moves all 4 extremities well, with full ROM and good CSM. FERRARA x4, CN II-XII grossly intact. No focal neurologic deficits. PSYCHIATRY Normal mood and affect, cooperative, no SI or HI or hallucinations. Objective Labs 08/17/24 05:00 08/17/24 05:00 Labs: Laboratory Results - last 24 hr 08/17/24 05:00 WBC 7.4 RBC 3.80 L Hgb 10.8 L Hct 32.4 L MCV 85 MCH 28.4 MCHC 33.3 RDW Std Deviation 45.8 Plt Count 315 Neut % (Auto) 63 Lymph % (Auto) 20 [place] % (Auto) 13 H Eos % (Auto) 2 Baso % (Auto) 0 Neut # (Auto) 4.7 Lymph # (Auto) 1.5 [place] # (Auto) 1.0 H Eos # (Auto) 0.2 Baso # (Auto) 0.0 Immature Gran # (Auto) 0.05 H Absolute Nucleated RBC 0.00 Immature Gran % 1 H Nucleated RBC % 0 Sodium 137 Potassium 3.1 L Chloride 102 Carbon Dioxide 23.9 Anion Gap 11 BUN 9 Creatinine 0.4 L Estim Creat Clear Calc 132.5 eGFR > 60 BUN/Creatinine Ratio 23 H Glucose 77 Calculated Osmolality 271 L Calcium 8.5 Corrected Calcium 9.1 Phosphorus 2.8 Magnesium 1.7 Total Bilirubin 0.4 AST 13 ALT 13 Alkaline Phosphatase 54 Total Protein 5.8 Albumin 3.3 L Globulin 2.5 Albumin/Globulin Ratio 1.3 Quality Measures Quality Measures none Advance care planning discussed with:: patient Assessment & Plan Assessment Current Active Medications: Generic Name Dose Route Start Last Admin Trade Name Freq PRN Reason Stop Dose Admin Acetaminophen 650 mg 08/15/24 10:27 08/15/24 10:49 Acetaminophen Supp 650 Mg Supp AK 09/12/24 20:58 650 mg Q6HR PRN Administration Fever > 100.3 or pain(1-3) Albuterol/Ipratropium 3 ml 08/13/24 20:59 Albuterol/Ipratropium (Duoneb) Rt [place] 3 Ml Nebu INH 09/12/24 20:58 Q2HR PRN SHORTNESS OF BREATH OR WHEEZE Atorvastatin Calcium 40 mg 08/14/24 21:00 08/16/24 21:32 Atorvastatin Calcium 20 Mg Tablet PO 09/13/24 20:59 40 mg HS RAUL Administration Enoxaparin Sodium 40 mg 08/15/24 11:00 08/16/24 09:14 Enoxaparin Sod Inj 40 Mg/0.4 Ml Syringe SC 08/29/24 10:59 40 mg QDAY RAUL Administration Hydralazine HCl 5 mg 08/13/24 21:08 Hydralazine Inj 20 Mg/Ml Vial IV 09/12/24 21:14 Q6H PRN SBP > 170 Lactated Ringer's 1,000 mls @ 125 mls/hr 08/13/24 21:08 08/16/24 23:10 Lactated Ringers IV 09/12/24 21:07 125 mls/hr .Q8H RAUL Administration Levothyroxine Sodium 37.5 mcg 08/14/24 06:00 08/17/24 05:33 Levothyroxine Inj 100 Mcg Vial IV 09/13/24 05:59 37.5 mcg ACBR RAUL Administration Metoclopramide HCl 10 mg 08/16/24 18:30 08/17/24 05:35 Metoclopramide Inj 5 Mg/Ml Vial 2 Ml IVP 09/15/24 18:29 10 mg Q6HR RAUL Administration Protocol Morphine Sulfate 4 mg 08/15/24 14:28 Morphine Sulf Inj 10 Mg/Ml Vial IVP 08/18/24 20:58 Q4H PRN BREAKTHROUGH PAIN Ondansetron HCl 4 mg 08/13/24 20:59 08/16/24 04:25 Ondansetron Inj 2 Mg/Ml Inj 2 Ml IV 09/12/24 20:58 4 mg Q6H PRN Administration NAUSEA OR VOMITING Protocol Pantoprazole Sodium 40 mg 08/13/24 21:15 08/16/24 09:14 Pantoprazole Inj 40 Mg Vial IVP 09/12/24 21:14 40 mg QDAY RAUL Administration Plan In summary: 59-year-old female with PMHx of HTN, HLD, hypothyroidism, admitted for incarcerated umbilical hernia. S/p ex lap with partial bowel resection. Bowel function returned. Tolerating clear liquid diet. We advance to regular diet per surgery recommendations. If she tolerates she can probably discharge. Appreciate recommendations from general surgery. Incarcerated medical hernia POD 3 EX-LAP with small bowel resection SBO Patient had greater than 15 episodes of vomiting per day for the past [address] shows multiple fluid distended small bowel loops with incarcerated umbilical hernia. Completed uncomplicated ex lap with small bowel resection. Bowel function returned. Tolerating clear liquids. Ambulating independently. General surgery agreed to discharge if tolerating regular diet. ? Continue CEFOXITIN 2 g daily (discontinued ) Continue regular diet Asymptomatic bacteriuria Urine grew E. coli, patient asymptomatic. ? Continue monitoring Prerenal SONA (resovled) 2/2 finding depletion 2/2 vomiting. Resolved with fluids ? Renally dose meds, avoid overdiuresis and NEPHROTOXINS ? Daily CMP HTN HLD Hypothyroidism Tensive on admission. Possibly volume depleted. Home meds include AMLODIPINE/BENZEPRO 10 daily. ? Continue home ATORVASTATIN 40 mg daily ? Continue home LEVOTHYROXINE 37.5 mcg AC BR ? Restart ANTIHYPERTENSIVE as indicated ? MELECIO versus OHA Patient found desatting overnight. Once likely MELECIO versus OHA versus atelectasis. Previously had workup for CPAP 20 years ago but never proceeded with machine. Reports symptoms of snoring, and morning fatigue. ? Oxygen PRN ? CPAP HS ? Recommended outpatient sleep study. Hypokalemia (resolved) Secondary to GI loss. Incidental findings CT showed 17 mm right adrenal nodule, grade 1 anterolisthesis L4 on L5 with significant degenerative disc disease. Asymptomatic at this time. ? Recommended outpatient follow-up, referral to specialist as appropriate Health maintenance Diet: CLD GI prophylaxis: PROTONIX DVT prophylaxis: LOVENOX Antibiotics: Not indicated CODE STATUS: Full code Disposition: Surgery Patient case was discussed with attending, Stef Ahmadi MD and senior resident Dr. Lock. Elenita Alfred DO PGYI
[2024-08-17] MEDS: POTASSIUM CHLORIDE 20 mEq TABCR 40 MEQ PO (10:40)
[2024-08-17] MEDS: POTASSIUM CHL 10 mEq IVPB 10 MEQ/100 ML BAG 100 MEQ IV ×4 (10:42→13:54)
[2024-08-17] MEDS: PANTOPRAZOLE INJ 40 MG VIAL IVP (10:42)
[2024-08-17] MEDS: ENOXAPARIN SOD INJ 40 MG/0.4 ML SYRINGE SC (10:42)
[2024-08-17 12:00] VITALS: BP 128/78; PULSE 69; RESP 17; TEMP 36.2; O2SAT 97
--- NOTE | 2024-08-17 15:10 | ESPR_ITS ---
Documentation for date of: 08/17/24 Subjective Subjective Narrative: Patient is seen and examined. Pain is improving. She is tolerating liquids without nausea or vomiting. She has had bowel movement yesterday after giving her laxatives Exam Vital Signs Temp Pulse Resp BP Pulse Ox O2 Del Method O2 Flow Rate 97.1 F 69 17 128/78 97 Room Air 2 08/17/24 12:00 08/17/24 12:00 08/17/24 12:08/17/24 12:08/17/24 12:08/17/24 12:08/17/24 08:19 Constitutional Constitutional: no acute distress Routine Abdominal Exam Abdominal: Present soft, normoactive bowel sounds and tenderness (Harleen- incisional tenderness. Incision is clean, dry and intact); Absent distended Assessment & Plan Assessment Additional comments: Postop day #3 status post exploratory laparotomy with partial small bowel resection Plan Advance to regular diet. If she is tolerating regular diet and continues to have bowel movement, may discharge home Procedures Procedures Diagnostic laparoscopy Exploratory laparotomy with partial small bowel resection
--- NOTE | 2024-08-17 15:33 | ESDS_ITS ---
Planned Discharge Date 08/17/24 DS: Providers Provider Date of admission: 08/13/24 20:59 Primary care physician: Luciano Perkins MD Admitting Provider: Jose Hawkins DO Attending Provider on Admission: Stef Ahmadi MD Consults: 08/13/24 20:02 Consult to General Surgery Stat Comment: Small bowel obstruction secondary to incarcerated Consulting Provider: Maddy Tay Attending Provider on DC: Stef Ahmadi MD Discharging Provider: Stef Ahmadi MD DS: Diagnosis Problem List Completed Was Problem List Reviewed/Reconciled?: Yes Hospital Course Hospital Course Hospital course: This is a 59-year-old female with PMHx of HTN, HLD, hypothyroidism, admitted for incarcerated umbilical hernia. CT showed High-grade mechanical small bowel obstruction secondary to incarcerated small bowel in an umbilical hernia. S/p uncomplicated EX-LAP with small bowel resection. Bowel function returned. Patient is stable. Ambulating independently. Tolerating regular diet, passing stool, without nausea or vomiting. She will follow-up with general surgery within 1-2 weeks of discharge. PATIENT INSTRUCTIONS: Follow-up with PCP within 1-2 weeks of discharge. Follow-up with general surgery, Dr. Tay within 1-2 weeks of discharge. Advance diet as tolerated. Recommended referral for sleep study to rule out sleep apnea. Return to Emergency Room if symptoms persist, worsen, or new symptoms develop. Continue taking PROTONIX 40 mg daily. Continue taking MIRALAX stool softener as needed. Continue taking TYLENOL as needed for pain. Continue taking all home medications as prescribed by your doctor. ADMISSION DIAGNOSES: Incarcerated medical hernia POD 3 EX-LAP with small bowel resection SBO Asymptomatic bacteriuria Prerenal SONA (resovled) HTN HLD Hypothyroidism ? MELECIO versus OHA Hypokalemia (resolved) Incidental findings CT showed 17 mm right adrenal nodule, grade 1 anterolisthesis L4 on L5 with significant degenerative disc disease. Asymptomatic at this time. ? Recommended outpatient follow-up, referral to specialist as appropriate Patient case was discussed with attending, Stef Ahmadi MD and senior resident Dr. Lock. Elenita Alfred DO PGYI Time Spent with Patient Time attestation: Total time spent providing and/or coordinating discharge services: Greater than 35 minutes. Exam Vital Signs Temp Pulse Resp BP Pulse Ox O2 Del Method O2 Flow Rate 97.1 F 69 17 128/78 97 Room Air 2 08/17/24 12:00 08/17/24 12:00 08/17/24 12:00 08/17/24 12:00 08/17/24 12:08/17/24 12:00 08/17/24 08:19 Narrative Exam GENERAL: Comfortable adult seen resting comfortably in hospital bed, no acute distress,mild naseous VITALS: All vitals were reviewed and the pulse ox is 98% on room air HEENT: Normocephalic, atraumatic. Pupils are equal and reactive. Oral mucosa is moist. NECK: Supple, nontender, no JVD CHEST: Symmetrical, atraumatic and with equal expansion ,Nontender on palpation CARDIOVASCULAR: Heart regular rhythm & rate. S1/S2. no murmur or gallop rub or extra beats. LUNGS: Clear to auscultation bilaterally with symmetrical chest rise. No laboring tachypnea or wheezing. No intercostal subcostal retraction. No rales and no rhonchi. ABDOMEN:Abdomen is soft and less distended. Incision with dressings clean, dry and intact. She has active bowel sounds EXTREMITIES:Moves all 4 extremities,No B/L LE edema. SKIN: Warm and dry, no jaundice or rashes noted. NEURO: Patient is AO x 3, Cranial nerves II through XII grossly intact. There is no focal neurologic deficits noted. PSYCHIATRIC: Patient is in normal mood, cooperative, no SI or HI or hallucinations. Discharge Plan Plan Patient Disposition: HOME (Self Care) Disposition Comment: stable Care Plan Goals: Follow-up with PCP within 1-2 weeks of discharge. Follow-up with general surgery, Dr. Tay within 1-2 weeks of discharge. Advance diet as tolerated. Recommended referral for sleep study to rule out sleep apnea. Return to Emergency Room if symptoms persist, worsen, or new symptoms develop. Continue taking PROTONIX 40 mg daily. Continue taking MIRALAX stool softener as needed. Continue taking TYLENOL as needed for pain. Continue taking all home medications as prescribed by your doctor. Prescriptions/Referrals Prescriptions/Med Rec: New pantoprazole 40 mg Tablet,Delayed Release (Dr/Ec) 40 mg PO QDAY Qty: 30 0RF polyethylene glycol 3350 [Miralax] 17 gram/dose powder 4 g PO QDAY PRN (Reason: constipation) Qty: 119 0RF Continued levothyroxine [Synthroid] 75 mcg tablet 75 mcg PO QDAY amlodipine-benazepril 10-20 mg capsule 1 cap PO QDAY gabapentin 300 mg capsule 300 mg PO TID Patient Comments: TAKE 1 CAPSULE BY MOUTH 3 TIMES A DAY Discontinued sulfamethoxazole-trimethoprim [Bactrim DS] 800-160 mg tablet 1 tab PO BID promethazine-DM syrup 6.25 - 15 each PO TID Referrals: Maddy Tay MD [Physician] - Luciano Perkins MD [Primary Care Provider] - Patient/Caregiver Discharge Instructions Education Materials: Types of Colon Resections, Having Open Colon Surgery, ED Hernia (Adult) Print Language: French Stand Alone Forms: [employer] Award Info., Patient Portal Info Letter Discharge Order Discharge Orders: Discharge (Routine); Ordered 08/17/24 Ordered By: Esau Lock Quality Discharge Quality Measures VTE prophylaxis Attestestation MD Attestation I reviewed labs, imaging, EKG, home medications and prior available records. Face to face evaluation was performed by me. I have personally examined the patient and discussed assessment and plan with the IM team. I reviewed the resident note and agree with the plan with exceptions as below. Small bowel obstruction status post exploratory laparotomy and partial removal of small bowel Nausea and vomiting Periumbilical abdominal pain Advance diet as tolerated: Tolerated her advanced diet, had a bowel movement and is passing gas Management of pain as needed Discussed with general surgery: Recommended early ambulation. Patient is ambulating well. Okay to discharge from surgery standpoint Time spent is 35 minutes. More than 50% of the time was spent on patient education and coordination of care.
[2024-08-17 16:00] VITALS: BP 123/72; PULSE 80; RESP 18; TEMP 36.3; O2SAT 98
[2024-08-17] MEDS: bisacodyL 5 MG TABEC 10 MG PO (17:53)
== END 2024-08-17 19:15 | disposition home or self-care (01) | DRG 329 ==
LOC: SERX 20:21 → SERHOLD 21:26 → S3SX 08-14 18:26
PROVIDERS: Nurse Practitioner Family; Surgery; Admitting Provider Student in an Organized Health Care Education/Training Program; Emergency Provider Emergency Medicine; PCP Family Medicine; Visit Provider Student in an Organized Health Care Education/Training Program
PROC: 0WQF4ZZ Repair Abdominal Wall, Percutaneous Endoscopic Approach (ICD-10-PCS; principal; 2024-08-14 14:30)
DX: K42.0 Umbilical hernia with obstruction, without gangrene (principal); K55.029 Acute infarction of small intestine, extent unspecified; N17.9 Acute kidney failure, unspecified; I10 Essential (primary) hypertension; E03.9 Hypothyroidism, unspecified; E87.6 Hypokalemia; E27.8 Other specified disorders of adrenal gland; G47.33 Obstructive sleep apnea (adult) (pediatric); M51.369 Other intervertebral disc degeneration, lumbar region without mention of lumbar back pain or lower extremity pain; M43.16 Spondylolisthesis, lumbar region; E78.00 Pure hypercholesterolemia, unspecified; Z53.31 Laparoscopic surgical procedure converted to open procedure; Z79.890 Hormone replacement therapy; Z79.899 Other long term (current) drug therapy
CPT/HCPCS: 36415; 74177; 80053; 80061; 81001; 83036; 83605; 83690; 83735; 84100; 84439; 84443; 85025; 85610; 85730; 87040; 93005; 94664; 96361; 96365; 96372; 96375; 99285; A4216; A4217; A4649; J0131; J0690; J0694; J1100; J1643; J1650; J2250; J2270; J2371; J2405; J2470; J2550; J2704; J2765; J3010; J3360; J3480; J3490; J7030; J7050; J7120; Q9967; A9270